=== PATIENT | female | born 1995 | race Caucasian/White ===

== ENCOUNTER 2023-01-24 11:09 | Emergency (ER) | payer BC, SELFPAY ==
--- NOTE | 2023-01-24 11:13 | ED.URI ---
HPI - URI/Sore Throat General Chief Complaint: Upper Respiratory Infection Stated Complaint: Sinus/Cough Time Seen by Provider: 01/24/23 11:12 Source: patient Mode of arrival: ambulatory Limitations: no limitations History of Present Illness HPI Narrative: Kiera is a 27-year-old female patient presenting to clinic today with complaints of sinus congestion and cough x2 weeks. She reports she has been taking amoxicillin for a tooth infection however this does not seem to be improving a her symptoms. She reports she is having thick nasal secretions that are green and is having a productive cough. Does have a history of asthma and also has been having to take her albuterol inhaler for her symptoms. MD elicited complaint: cough and nasal congestion Related Data Home Medications Medication Instructions Recorded Confirmed cetirizine 10 mg capsule (Zyrtec) 10 mg PO DAILY PRN Allergy Symptoms 11/25/21 01/24/23 chlorhexidine gluconate 0.12 % 0.5 ml PO DAILY 01/24/23 01/24/23 mouthwash montelukast 10 mg tablet 10 mg PO HS 01/24/23 01/24/23 pantoprazole 40 mg tablet,delayed 40 mg PO DAILY 01/24/23 01/24/23 release Allergies Allergy/AdvReac Type Severity Reaction Status Date / Time No Known Allergies Allergy Verified 01/24/23 11:13 Review of Systems Review of Systems: Pertinent positives per HPI. Patient denies any fever, chills, rash, headache, visual changes, dizziness, shortness of breath, chest pain, palpitations, nausea, vomiting, diarrhea, constipation, abdominal pain, or any urinary issues. [facility] Surgical History Surgical History History of tonsillectomy Family History Family History Mother Heart disease Father Melanoma Social History Social History Smoking status: Never smoker Alcohol intake: never Comments At the time of my signature, I reviewed and agree with the nursing past medical, surgical, social, and family history. There is no relevant family history pertinent to the patient complaint. Exam Narrative: General: Well-developed, well nourished, in no apparent distress Head: Normocephalic, atraumatic Eyes: Pupils equally round and reactive to light bilaterally, EOM intact, sclera and conjunctive clear, no discharge, lids normal Ears: TMs intact and clear, ear canals clear, no drainage, grossly hearing normal. Nose: Nares patent, green nasal discharge, severe inflammation, maxillary and frontal sinus tenderness. Mouth: Oral pharynx without lesions or masses, good dentition, MMM. Tonsils surgically absent, postnasal drip Neck: Supple, trachea midline, no enlargement of anterior or posterior cervical nodes, no thyroid masses or goiter palpable. Cardio: Regular rate and rhythm, s1 and s2 normal, no murmur appreciated. Resp: Clear to auscultation bilaterally, no rhonchi, rales, wheezing or rubs Course Course Emergency Course: Portions of this record may have been created with voice recognition software. Level of Care: Express Care Visit Vital Signs Vital signs: Vital signs reviewed MDM - URI/Sore Throat MDM Narrative Medical decision making narrative: At the time of visit patient is resting comfortably on exam table. I suspect patient has acute bacterial rhinosinusitis. Prescription for Augmentin was sent to the pharmacy as well as prednisone and a refill for her albuterol inhaler as she is running low. Supportive measures were discussed with the patient she voiced understanding discharge instructions agrees to treatment plan. Differential Diagnosis Differential diagnosis: Likely upper respiratory infection, sinusitis, viral infection, bronchitis, influenza, pharyngitis and other (COVID) Discharge Plan Discharge Clinical Impression: Acute bacterial sinusitis Patient Disposition: Home, Self
[2023-01-24 11:21] VITALS: BP 124/88; PULSE 91; RESP 16; TEMP 36.6; O2SAT 100
== END 2023-01-24 11:28 | disposition home or self-care (01) ==
PROVIDERS: Emergency Provider Nurse Practitioner Family; PCP Nurse Practitioner Family
DX: J01.90 Acute sinusitis, unspecified (principal); J45.909 Unspecified asthma, uncomplicated
CPT/HCPCS: 99213; G0463

== ENCOUNTER 2023-04-04 19:14 | Emergency (ER) | payer BC, SELFPAY ==
[2023-04-04 19:20] VITALS: BP 132/81; PULSE 124; RESP 16; TEMP 37.1; O2SAT 100
--- NOTE | 2023-04-04 19:21 | ED.GENADULT ---
HPI - General Adult General Chief complaint: Skin/Abscess/Foreign Body Stated complaint: Bump Under Rt Arm Time Seen by Provider: 04/04/23 19:21 Source: patient Mode of arrival: ambulatory Limitations: no limitations History of Present Illness HPI narrative: 27-year-old female patient presents to the [facility] with complaints of swelling and a bump to right axilla for the past couple days. Patient states she has had small ingrown hair area since axilla before the past but today this time is been worse. Denies fevers, body aches or chills. Patient states she was at the [facility] today. Related Data Home Medications Medication Instructions Recorded Confirmed cetirizine 10 mg capsule (Zyrtec) 10 mg PO DAILY PRN Allergy Symptoms 11/25/21 04/04/23 montelukast 10 mg tablet 10 mg PO HS 01/24/23 04/04/23 pantoprazole 40 mg tablet,delayed 40 mg PO DAILY 01/24/23 04/04/23 release Allergies Allergy/AdvReac Type Severity Reaction Status Date / Time No Known Allergies Allergy Verified 04/04/23 19:14 Review of Systems Review of Systems: CONSTITUTIONAL: Denies fever, chills, or sweats. EYES: Denies visual changes, redness, or discharge. ENT: Denies rhinorrhea, congestion, sore throat, or otalgia. CARDIOVASCULAR: Denies chest pain, palpitations, or edema. RESPIRATORY: Denies cough or dyspnea. GASTROINTESTINAL: Denies abdominal pain, nausea, vomiting, or diarrhea. GENITOURINARY: Denies dysuria or hematuria. SKIN: Denies rash or itching. Positive swelling to right axilla times 2-3 days MUSCULOSKELETAL: Denies back pain, joint pain, or myalgia. NEUROLOGIC: Denies headache, numbness, or weakness. PSYCHIATRIC: Denies anxiety or depression. [facility] Past Medical History Medical History (Updated 04/04/23 @ 19:27 by LANNY Dunn) Seasonal allergies Surgical History Surgical History History of tonsillectomy Family History Family History Mother Heart disease Father Melanoma Social History Social History (Reviewed 04/04/23 @ 19:21 by OTIS Dunn Smoking status: Never smoker Alcohol intake: never Comments At the time of my signature I agree with nursing past medical history, surgical, social, and family history. There is no relevant family history pertinent to the presenting complaint. Exam Narrative: GENERAL: Well-appearing, well-nourished, and in no acute distress. HEAD: Normocephalic, atraumatic. EYES: PERRLA and EOMI. ENT: Nares clear, no rhinorrhea or epistaxis. Mucous membranes moist. NECK: Supple. No lymphadenopathy CHEST: Clear to auscultation. No respiratory distress. HEART: Regular rate and rhythm. No murmur heard. Normal peripheral pulses. ABDOMEN: Soft, nontender, nondistended, normal active bowel sounds. EXTREMITIES: Normal range of motion. No edema. SKIN: Warm, dry, no rash. patient has a small 1 cm x 1 cm bump area with no warmth present and very mild erythema. The area is tender to the touch. Patient does have a larger swelling area measuring approximately 15 cm x 15 cm but it is soft to the touch and slightly tender. No site of induration NEURO: No focal deficits. Alert and oriented x3. Course Course Level of Care: Express Care Visit Vital Signs Vital signs: Vital Signs Temperature 37.1 C 04/04/23 19:20 Pulse Rate 124 H 04/04/23 19:20 Respiratory Rate 16 04/04/23 19:20 Blood Pressure 132/81 04/04/23 19:20 Pulse Oximetry 100 04/04/23 19:20 Oxygen Delivery Room Air 04/04/23 19:20 Temperature 37.1 C 04/04/23 19:20 Pulse Rate 124 H 04/04/23 19:20 Respiratory Rate 16 04/04/23 19:20 Blood Pressure 132/81 04/04/23 19:20 Pulse Oximetry 100 04/04/23 19:20 Oxygen Delivery Room Air 04/04/23 19:20 vital signs reviewed The patient has been informed that they may have pre-hypertension or Hypertension based o
== END 2023-04-04 19:29 | disposition home or self-care (01) ==
PROVIDERS: Emergency Provider Nurse Practitioner Family; PCP Nurse Practitioner Family
DX: L02.411 Cutaneous abscess of right axilla (principal)
CPT/HCPCS: 99213; G0463

== ENCOUNTER 2025-05-03 14:18 | Outpatient (CLI) | payer BC, SELFPAY ==
--- NOTE | ~2025-05-03 | US_ITS ---
EXAMINATION: US OB /maternal detail DATE: 05/03/2025 15:08 INDICATION: survey TECHNIQUE: Multiple obstetric sonographic images performed. FINDINGS: No prior studies for comparison. There is a single living fetus in vertex presentation. The placenta is anterior without placenta pre via. Amniotic fluid volume is subjectively normal. PARVIN measures 16.8 cm. cardiac activity and movement is noted with a heart rate of 170 beats per minute. The following anatomy was identified as normal: 4 chamber heart 3 vessel cord cord insertion kidneys urinary bladder stomach spine diaphragm ventricles cisterna magna cerebellum The following biometric data were obtained: BPD: 49mm corresponds to gestational age 20 weeks 5 days. Head circumference: 184 mm corresponds to gestational age 20 weeks 5 days. Abdominal circumference: 165 mm corresponds to gestational age 21 weeks 4 days. Femur length: 34 mm corresponds to gestational age 20 weeks 5 days. Head circumference to abdominal circumference ratio: 1.11 (normal range for expected gestational age is 1.06-1.25). Estimated weight: 399 grams +/- 60 grams using Hadlock method, 74%. IMPRESSION: 1: Single living intrauterine with an estimated gestational age of 21weeks 0days by initial ultrasound measurements, with an EDC of 09/13/2025 in vertex presentation. 2. Normal survey. Reviewed, dictated and finalized at location A. IMPRESSION: 1: Single living intrauterine with an estimated gestational age of 21 weeks 0days by initial ultrasound measurements, with an EDC of 09/13/2025 in ve rtex presentation. 2. Normal survey.
== END 2025-05-03 14:19 | disposition home or self-care (01) ==
PROVIDERS: PCP Obstetrics & Gynecology; Visit Provider Obstetrics & Gynecology
DX: Z34.92 Encounter for supervision of normal pregnancy, unspecified, second trimester (principal); Z3A.21 21 weeks gestation of pregnancy
CPT/HCPCS: 76805

== ENCOUNTER 2025-06-28 06:37 | Outpatient (RCR) | payer BC, SELFPAY ==
--- OUTSIDE RECORDS SUMMARY | 2025-06-26 14:59 | XMS_ITS | Encounter Summary ---
Author Organization [facility] Address [address] [place] [id number] Care Team Providers Care Lag Screwer Name Role Phone Julisa Pierre [facility] Primary Care Provider + Christiana Woodward [facility] Primary Care Provider + Encounter Details Date Type Department Care Team (Late st Contact Info) Description 04/28/2023 [employer] Message Enc [facility] Medical Group Family & Internal Medicine [address] [phone] Julisa Pierre [address] [phone] Medication Questions Social History Tobacco Use Types Packs/Day Years Used Date Smoking Tobacco: Never Smokeless Tobacco: Never Comments:non smoker Alcohol Use Standard Drinks/Week Comments Yes 0 (1 standard drink = 0.6 oz pur e alcohol) social AUDIT-C Answer Date Recorded Frequency of Alcohol Consumption Monthly or less 09/28/2019 Average Number of Drinks Not on file 019 Frequency of Binge Drinking Not on file 09/03 PHQ-2 Answer Date Recorded PHQ-2 Score - If the patient scores above 3, please move on to questions 3-9 0 06/17/2022 Comments No Sex and Gender Information Value Date Recorded Sex Assigned at Female 10/21/2018 10:54 PM ABATTOIR SUPERVISOR Legal Sex Female 6:02 PM CDT Gender Identity Female 10/21/2018 10:54 PM ABATTOIR SUPERVISOR Sexual Orientation Straight 10/21/2018 1: 52 PM ABATTOIR SUPERVISOR Occupation Industry Job Start Date Job End Date Not on file Not on file Not on file Not on file documented as of this encounter Plan of Treatment Not on file documented as of this encounter Visit Diagnoses Not on filedocumented in this encounter Care Teams Lag Screwer Relationship Specialty Start Date End Date Julisa Pierre [facility] PCP - General Nurse Practitioner Family 08/15/2106/03 Christiana Woodward, [facility] [address], [address] [place] [address] PCP - General Nurse Practitioner Family 06/04/23 documented as of this encounter
--- OUTSIDE RECORDS SUMMARY | 2025-06-26 14:59 | XMS_ITS | Encounter Summary ---
Author Organization [facility] Address [address] [place] [address] Care Team Providers Care Golf Club Manager Name Role Phone Julisa Pierre [facility] Primary Care Provider + Christiana Woodward [facility] Primary Care Provider + Encounter Details Date Type Department Care Team (Late st Contact Info) Description 08/22/2022 Synapse Message Enc [facility] Medical Group Family & Internal Medicine [address] [phone] Julisa Pierre [address] [phone] Medication Questions Social History Tobacco Use Types [...] Sex Assigned at Female 10/21/2018 10:54 PM EXECUTIVE HOUSEKEEPER Legal Sex Female 6:02 PM CDT Gender Identity Female 10/21/2018 10:54 PM EXECUTIVE HOUSEKEEPER Sexual Orientation Straight 10/21/2018 1: 52 PM EXECUTIVE HOUSEKEEPER Occupation Industry Job Start Date Job End Date Not on file Not on file Not on file Not on file documented as of this encounter Progress Notes * AYLEEN Ferris - 08/25/2022 11:50 PM CDT Okay to order. * Ganesh Cheung RN - 08/25/2022 10:58 AM CDT Ok to order? documented in this encounter Plan of Treatment Not on file documented as of this encounter Visit Diagnoses Not on filedocumented in this encounter Care Teams Golf Club Manager Relationship Specialty Start Date End Date Julisa Pierre FNP-BC PCP - General Nurse Practitioner Family 08/15/2106/03 Christiana Woodward [facility] [address], [address] [place] [address] PCP - General Nurse Practitioner Family 06/04/23 documented as of this encounter
--- OUTSIDE RECORDS SUMMARY | 2025-06-26 14:59 | XMS_ITS | Clinical Summary ---
Author Organization [facility] Address [address] [place] [address] Phone Care Team Providers Care Food Order Delivery Runner Name Role Phone [facility], External Provider Primary Care Provider U navailable Allergies No known active allergies Medications No known medications Active Problems Problem Noted Date Diagnosed Date Low BP 06/01/2017 Heart palpitations 04/21/2017 Preoperative cardiovascular examination 04/21/20 17 Family history of premature CAD 04/21/2017 Sinus tachycardia 04/21/2017 Family History Relation Name Status Comments Father Mother Alive Social History Tobacco Use Types Packs/Day Years Used Date Smoking Tobacco: Never Smokeless Tobacco: Never Alcohol Use Standard Drinks/Week Comments No 0 (1 standard drink = 0.6 oz pur e alcohol) Comments Unknown Sex and Gender Information Value Date Recorded Sex Assigned at Not on file Legal Sex Female 11:22 AM CDT Gender Identity Not on file Sexual Orientation Not on file Last Filed Vital Signs Vital Sign Reading Time Taken Comments Blood Pressure 90/54 05/28/2017 1:42 PM CDT Pulse 100 05/28/2017 1:42 PM CDT Temperature - - Respiratory Rate - - Oxygen Saturation 98% 05/28/2017 1:42 PM CDT Inhaled Oxygen Concentration - - Weight 75.3 kg (166 lb) 05/28/2017 1:42 PM CDT Height 177.8 cm (5' 10) 05/28/2017 1:42 PM CDT Body Mass Index 23.82 05/28/2017 1:42 PM CDT Plan of Treatment Health Maintenance Due Date Last Done Comments DTAP/TDAP/TD VACCINES (1 - Tdap) 2016 HEPATITIS B VACCINES (1 of 3 - 19+ 3-dose series) 09/02 CERVICAL CANCER SCREENING 2018 HPV/Cotest (21-29) 2018 PAP SMEAR 2018 HPV VACCINES (1 - 3-dose SCDM series) 2024 INFLUENZA VACCINE (#1) 2025 Insurance Care Teams Food Order Delivery Runner Relationship Specialty Start Date End Date [facility], External Provider [address] [place] [address] PCP - General 04/02/17
--- OUTSIDE RECORDS SUMMARY | 2025-06-26 14:59 | XMS_ITS | Encounter Summary ---
Author Organization [facility] Address [address] [place] [address] Care Team Providers Care Housing Grant Analyst Name Role Phone Julisa Pierre [facility] Primary Care Provider + Christiana Woodward [facility] Primary Care Provider + Encounter Details Date Type Department Care Team (Late st Contact Info) Description 02/05/2023 Enclarity Message Enc [facility] Medical Group Family & Internal Medicine [address] [phone] Julisa Pierre [address] [phone] Medication Questions Social History Tobacco Use Types [...] Sex Assigned at Female 10/21/2018 10:54 PM BOILER TUBE BLOWER Legal Sex Female 6:02 PM CDT Gender Identity Female 10/21/2018 10:54 PM BOILER TUBE BLOWER Sexual Orientation Straight 10/21/2018 1: 52 PM BOILER TUBE BLOWER Occupation Industry Job Start Date Job End Date Not on file Not on file Not on file Not on file documented as of this encounter Progress Notes * AYLEEN Ferris - 02/15/2023 7:00 PM CDT Please see other MyChart message. * Clarita Preston MA - 02/06/2023 7:22 AM CDT Please advise? documented in this encounter Plan of Treatment Not on file documented as of this encounter Visit Diagnoses Not on filedocumented in this encounter Care Teams Housing Grant Analyst Relationship Specialty Start Date End Date Julisa Pierre FNP-BC PCP - General Nurse Practitioner Family 08/15/2106/03 Christiana Woodward [facility] [address], [address] [place] [id number] PCP - General Nurse Practitioner Family 06/04/23 documented as of this encounter
--- OUTSIDE RECORDS SUMMARY | 2025-06-26 14:59 | XMS_ITS | Clinical Summary ---
Author Organization [facility] Address [address] [place] [address] Care Team Providers Care First Aid Officer Name Role Phone Christiana Woodward [facility] Primary Care Provider + Allergies No known active allergies Medications loratadine (CLARITIN) 10 MG tablet Take 1 tablet (10 mg total) by mouth daily. Active albuterol sulfate HFA (PROAIR HFA) 108 (90 Base) MCG/ACT inhalerIndicatio ns:Allergic rhinitis, unspecified seasonality, unspecified trigger Inhale 1-2 puffs into the lungs every 6 (six) hours as needed for Wheezing or Shortness of breath. 18 g 1 4 Active FLUoxetine (PROZAC) 10 MG tabletIndication s:PMDD (premenstrual dysphoric disorder) Take 1 tablet (10 mg total) by mouth daily. 90 tablet 1 5 Active Active Problems Problem Noted Date Diagnosed Date Cervical herniated disc 05/22/2020 Allergic rhinitis 04/16/2018 PMS (premenstrual syndrome) 04/16/2018 Family history of premature CAD 04/21/2017 Heart palpitations 04/21/2017 Esophagitis, reflux 11/17/2016 Seasonal allergies 10/05/2015 Scoliosis 06/14/2013 Unequal leg length (acquired) 04/13/2013 Overview (09/22/2018): Description: need leg length study Comments Yes Resolved Problems Problem Noted Date Diagnosed Date Resolved Date Neck pain 08/23/2018 09/24/2018 Shoulder pain, left 04/16/2018 09/24/20 Low BP 06/01/2017 08/22/2021 Wears glasses 05/22/2017 07/13/2020 Preoperative cardiovascular examination 04/21/2017 09/24/2018 Sinus tachycardia 11/17/2016 03/18/2019 Melasma 04/02/2016 08/23/2024 Motion sickness 12/28/2013 08/25/2021 Acute sinusitis, recurrence not specified, unspecified location 09/19/2013 09/24/2018 Encounter for preventive health examination 06/21/2012 09/24/2018 Encounters Date Type Department Care Team Description 04/03/2025 Telephone [facility] Family & Internal Medicine [address] [phone] Christiana Woodward, CLAMSHELL ENGINEER-BC Medication from Last 3 Months Immunizations Immunization Administration Dates Next Due Dtap (Generic) 05/23/2003, 9,03/30/1998,01/29,1997 Dtap/Hep B/Ipv 1997 Fluzone 6 Months+ Quad (0.5 mL Prefilled Syringe) 08/17/2020,08/11/2019 HPV 08/10/2014,06/21/2012,07/04/2009 Hepatitis A (Generic) 07/04/2009 Hepatitis A Vaccine - 2 Dose 06/13/2015 Hepatitis B (Generic: Adult) 03/30/1998,10/19/19 97,1997 Hib (Generic) 01/22/1999 Hib Vaccine, Prp-Omp 03/24/1999,03/30/19 98,01/29/1998,11/23 Influenza (FluMist) 08/16/2008 Influenza (Generic) 09/19/2013,07/04/2009,2007 Influenza Adult (Generic) 08/23/2018,12/2017,08/10/2014,09/19 MMR (Generic) 05/23/2003,10/03/1998 Meningococcal Vac A,C,Y,W-135 Sc 06/13/2015,12/2008 PFIZER COVID-19 (ORIGINAL FO RMULATION, PURPLE CAP) mRNA, LNP-S, PF, 30 MCG/0.3 ML DOSE 10/17/2021 Polio Ipv (Generic) 05/23/2003, 8,01/19/1998,11/23 Polio Opv (Generic) 1997 Tdap (Boostrix) 12/24/2022 Tdap (Generic) 08/16/2008 Varicella Vaccine 08/16/2008,10/03/1998 Family History Medical History Relation Comments GERD Brother Diabetes Father Skin cancer Father Heart Disease Maternal Grandfather Heart Disease Maternal Grandmother Diabetes Mother Fibromyalgia Mother Heart Disease Mother multiple cardiac surgeries Hiatal hernia Mother Rheumatoid Arthritis Mother Stroke Mother Relation Status Comments Brother Alive Father Maternal Grandfather Maternal Grandmother Mother Alive Social History Tobacco Use Types Packs/Day Years Used Date Smoking Tobacco: Never Smokeless Tobacco: Never Tobacco Cessation:Counseling Given: No Comments:non smoker Alcohol Use Standard Drinks/Week Comments Yes 6.7 (1 standard drink = 0.6 oz p ure alcohol) social; weekends AUDIT-C Answer Date Recorded Frequency of Alcohol Consumption Monthly or less 09/28/2019 Average Number of Drinks Not on file 019 Frequency of Binge Drinking Not on file 09/03 PHQ-2 Answer Date Recorded Patient Health Questionnaire-2 Score 2 01/30/2025 Comments Yes Sex and Gender Information Value Date Recorded Sex Assigned at Female 10/21/2018 10:54 PM MEDICAL APPOINTMENT CLERK Legal Sex Female 6:02 PM CDT Gender Identity Female 10/21/2018 10:54 PM MEDICAL APPOINTMENT CLERK Sexual Orientation Straight 10/21/2018 1: 52 PM MEDICAL APPOINTMENT CLERK Occupation Industry Job Start Date Job End Date Not on file Not on file Not on file Not on file Last Filed Vital Signs Vital Sign Reading Time Taken Comments Blood Pressure 123/81 01/30/2025 8:54 AM CDT Pulse 101 01/30/2025 8:54 AM CDT Temperature 36.9 C (98.5 F) 01/30/2025 8:54 AM CDT Respiratory Rate 16 01/30/2025 8:54 AM CDT Oxygen Saturation 100% 01/30/2025 8:54 AM CDT Inhaled Oxygen Concentration - - Weight 88.5 kg (195 lb) 01/30/2025 8:54 AM CDT Height 177.8 cm (5' 10) 01/30/2025 8:54 AM CDT Body Mass Index 27.98 01/30/2025 8:54 AM CDT Plan of Treatment Health Maintenance Due Date Last Done Comments Cervical Cancer Screening Pap Smear (Age 21 to 29) Every 3 Years 1997 Annual Physical 06/17/2024 06/17/2023, 06/17/2022 COVID-19 Vaccine ( season) 2025 10/17/2021 Postponed from 07/03/2024 (Patient Refused) Cervical Cancer Screening 10/14/2027 Po stponed from 1997 (Going to Outside Clinic) DTaP, Tdap and Td Vaccines (8 - Td or Tdap) 12/24/2032 12/24/2022, 08/16/2008, 05/23/2003, Additional history exists Hepatitis C 10/18/2054 Postponed from 2015 (Patient Refused) RSV Immunization or 60+ Years (1 - 1-dose 75+ series) 2072 Hepatitis B Vaccines Completed 03/30/1998, 1997, 1997, Additional history exists HPV Vaccines Completed 08/10/2014, 06/03, 07/04/2009 Meningococcal Vaccine Aged Out 06/13/2015, 009 No longer eligible based on patient's age to complete this topic PHQ-2 (Physician Verner) Completed 01/30/2025 Meningococcal B Vaccine Aged Out No l onger eligible based on patient's age to complete this topic Pneumococcal Vaccine: Pediatrics (0 to 5 Years) and At-Risk Patients (6 to 49 Years) Aged Out No longer eligible based on patient's age to complete this topic RSV Immunizations Under 20 Months Aged Out No longer eligible based on patient's age to complete this topic Insurance [facility] Care Teams First Aid Officer Relationship Specialty Start Date End Date Christiana Woodward, [facility]- [address], [address] [place] [phone] PCP - General Nurse Practitioner Family 06/04/23
--- OUTSIDE RECORDS SUMMARY | 2025-06-26 14:59 | XMS_ITS | Encounter Summary ---
Author Organization [facility] Address [address] [place] [address] Care Team Providers Care Senior Gis Analyst Name Role Phone Alana Renee NP Primary Care Provider Unav ailable Julisa Pierre [facility] Primary Care Provider + Christiana Woodward [facility] Primary Care Provider + Encounter Details Date Type Department Care Team (Late st Contact Info) Description 09/17/2020 [employer] Message Enc [facility] Medical Group Family & Internal Medicine [address] [phone] Alana Renee NP RE: Follow Up/Update Social History Tobacco Use Types Packs/Day Years Used Date Smoking Tobacco: Never Smokeless Tobacco: Never Alcohol Use Standard Drinks/Week Comments Yes 0 (1 standard drink = 0.6 oz pur e alcohol) social AUDIT-C Answer Date Recorded Frequency of Alcohol Consumption Monthly or less 09/28/2019 Average Number of Drinks Not on file 019 Frequency of Binge Drinking Not on file 09/03 PHQ-2 Answer Date Recorded PHQ-2 Score 0 09/28/2019 Comments No Sex and Gender Information Value Date Recorded Sex Assigned at Female 10/21/2018 10:54 PM CHRISTMAS TREE GROWER Legal Sex Female 6:02 PM CDT Gender Identity Female 10/21/2018 10:54 PM CHRISTMAS TREE GROWER Sexual Orientation Straight 10/21/2018 1: 52 PM CHRISTMAS TREE GROWER Occupation Industry Job Start Date Job End Date Not on file Not on file Not on file Not on file documented as of this encounter Progress Notes * Isa Olson MA - 09/17/2020 4:20 PM CST Please advise. STMAS TREE GROWER documented in this encounter Plan of Treatment Not on file documented as of this encounter Visit Diagnoses Not on filedocumented in this encounter Additional Health Concerns Infection Onset Date Last Indicated Resolved Time COVID-19 Confirmed 09/06/2020 09/06/2020 12:34 AM CHRISTMAS TREE GROWER COVID-19 Rule Out 03/22/2021 03/22/2021 03/22/2021 11:36 AM CDT COVID-19 Rule Out 08/28/2021 08/28/2021 08/29/2021 7:37 PM CDT documented as of this encounter Care Teams Senior Gis Analyst Relationship Specialty Start Date End Date Alana Renee NP PCP - General NURSE PRACTITIONER 09/22/18 08/14/21 Julisa Pierre, [facility]- PCP - General Nurse Practitioner Family 08/15/2106/03 Christiana Woodward, [facility]- [address], [address] [place] [address] PCP - General Nurse Practitioner Family 06/04/23 documented as of this encounter
--- OUTSIDE RECORDS SUMMARY | 2025-06-26 14:59 | XMS_ITS | Encounter Summary ---
Author Organization [facility] Address [address] [place] [address] Care Team Providers Care Die Reamer Name Role Phone Alana Renee NP Primary Care Provider Unav ailable Julisa Pierre [facility] Primary Care Provider + Christiana Woodward [facility] Primary Care Provider + Encounter Details Date Type Department Care Team (Late st Contact Info) Description 06/12/2020 [employer] Message Enc [facility] Medical Group Family & Internal Medicine [address] [phone] Alana Renee NP RE: Follow [...] Sex Assigned at Female 10/21/2018 10:54 PM EMBROIDERER Legal Sex Female 6:02 PM CDT Gender Identity Female 10/21/2018 10:54 PM EMBROIDERER Sexual Orientation Straight 10/21/2018 1: 52 PM EMBROIDERER Occupation Industry Job Start Date Job End Date Not on file Not on file Not on file Not on file COVID-19 Exposure Response Date Recorded In the last month, have you been in contact with someone who was confirmed or suspected to have Coronavirus / COVID-19? No / Unsure 06/14/2020 1:38 PM CDT documented as of this encounter Progress Notes * Andie Parra RN - 06/14/2020 9:00 AM CDT Called and left for patient to return call to schedule appt. * Alana Renee NP - 06/12/2020 6:20 PM CDT Poor girl! Yes, can she come in for appt please so we can check her urine? Thanks lenny documented in this encounter Plan of Treatment Not on file documented as of this encounter Visit Diagnoses Not on filedocumented in this encounter Additional Health Concerns Infection Onset Date Last Indicated Resolved Time COVID-19 Rule Out 09/06/2020 09/06/2020 09/09/2020 3:01 PM EMBROIDERER COVID-19 Confirmed 09/06/2020 09/06/2020 12:34 AM EMBROIDERER COVID-19 Rule Out 03/22/2021 03/22/2021 03/22/2021 11:36 AM CDT COVID-19 Rule Out 08/28/2021 08/28/2021 08/29/2021 7:37 PM CDT documented as of this encounter Care Teams Die Reamer Relationship Specialty Start Date End Date Alana Renee NP PCP - General NURSE PRACTITIONER 09/22/18 08/14/21 Julisa Pierre FNP- PCP - General Nurse Practitioner Family 08/15/2106/03 Christiana Woodward, [facility]- [address], [address] [place] [address] PCP - General Nurse Practitioner Family 06/04/23 documented as of this encounter
--- OUTSIDE RECORDS SUMMARY | 2025-06-26 14:59 | XMS_ITS | Encounter Summary ---
Author Organization [facility] Address [address] [place] [address] Care Team Providers Care Parts Clerk Name Role Phone Alana Renee NP Primary Care Provider Unav ailable Julisa Pierre [facility] Primary Care Provider + Christiana Woodward [facility] Primary Care Provider + Encounter Details Date Type Department Care Team (Late st Contact Info) Description 06/11/2020 [employer] Message Enc [facility] Medical Group Family & Internal Medicine [address] [phone] Alana Renee, HONING MACHINE TRY OUT SETTER RE: Question Social History Tobacco Use Types Packs/Day Years [...] Sex Assigned at Female 10/21/2018 10:54 PM FILM SOUND COORDINATOR Legal Sex Female 6:02 PM CDT Gender Identity Female 10/21/2018 10:54 PM FILM SOUND COORDINATOR Sexual Orientation Straight 10/21/2018 1: 52 PM FILM SOUND COORDINATOR Occupation Industry Job Start Date Job End Date Not on file Not on file Not on file Not on file COVID-19 Exposure Response Date Recorded In the last month, have you been in contact with someone who was confirmed or suspected to have Coronavirus / COVID-19? No / Unsure 06/14/2020 1:38 PM CDT documented as of this encounter Plan of Treatment Not on file documented as of this encounter Visit Diagnoses Not on filedocumented in this encounter Additional Health Concerns Infection Onset Date Last Indicated Resolved Time COVID-19 Rule Out 09/06/2020 09/06/2020 09/09/2020 3:01 PM FILM SOUND COORDINATOR COVID-19 Confirmed 09/06/2020 09/06/2020 12:34 AM FILM SOUND COORDINATOR COVID-19 Rule Out 03/22/2021 03/22/2021 03/22/2021 11:36 AM CDT COVID-19 Rule Out 08/28/2021 08/28/2021 08/29/2021 7:37 PM CDT documented as of this encounter Care Teams Parts Clerk Relationship Specialty Start Date End Date Alana Renee NP PCP - General NURSE PRACTITIONER 09/22/18 08/14/21 Julisa Pierre, [facility] PCP - General Nurse Practitioner Family 08/15/2106/03 Christiana Woodward, [facility]- [address], [address] [place] [address] PCP - General Nurse Practitioner Family 06/04/23 documented as of this encounter
--- OUTSIDE RECORDS SUMMARY | 2025-06-26 14:59 | XMS_ITS | Encounter Summary ---
Author Organization [facility] Address [address] [place] [address] Care Team Providers Care Lead Electrician Name Role Phone Julisa Pierre [facility] Primary Care Provider + Christiana Woodward [facility] Primary Care Provider + Encounter Details Date Type Department Care Team (Late st Contact Info) Description 01/30/[address] [employer] [address] [facility] Medical Group Family & Internal Medicine [address] [phone] Julisa Pierre [address] [phone] Medication Questions Social History Tobacco Use Types [...] Sex Assigned at Female 10/21/2018 10:54 PM AGRICULTURAL AGENT Legal Sex Female 6:02 PM CDT Gender Identity Female 10/21/2018 10:54 PM AGRICULTURAL AGENT Sexual Orientation Straight 10/21/2018 1: 52 PM AGRICULTURAL AGENT Occupation Industry Job Start Date Job End Date Not on file Not on file Not on file Not on file documented as of this encounter Progress Notes * AYLEEN Ferris - 02/02/2023 5:26 PM CDT Scop patches sent to her pharmacy. * Clarita Stanton RN - 02/02/2023 11:12 AM CDTFrom: Kiera Shea To: Julisa Pierre Sent: 01/30/2023 5:25 PM CDT Subject: Medication Questions Hello! I'm going on a cruise soon and I was wondering if Julisa could prescribe some of the scopalomine neck patches for motion sickness in case. [facility] please. Thanks! documented in this encounter Plan of Treatment Not on file documented as of this encounter Visit Diagnoses Diagnosis Motion sickness- Primary documented in this encounter Care Teams Lead Electrician Relationship Specialty Start Date End Date Julisa Pierre [facility] PCP - General Nurse Practitioner Family 08/15/2106/03 Christiana Woodward, [facility] [address], [address] [place] [address] PCP - General Nurse Practitioner Family 06/04/23 documented as of this encounter
--- OUTSIDE RECORDS SUMMARY | 2025-06-26 14:59 | XMS_ITS | Encounter Summary ---
Author Organization [facility] Address [address] [place] [address] Care Team Providers Care Chemicals Fermentation Operator Name Role Phone Julisa Pierre [facility] Primary Care Provider + Christiana Woodward [facility] Primary Care Provider + Encounter Details Date Type Department Care Team (Late st Contact Info) Description 12/26/2021 [employer] Message Enc [facility] Medical Group Family & Internal Medicine [address] [address] Julisa Pierre [address] [phone] Medication Questions Social History Tobacco Use Types [...] please move on to questions 3-9 0 10/03/2020 Comments No Sex and Gender Information Value Date Recorded Sex Assigned at Female 10/21/2018 10:54 PM JEWEL OLIVING MACHINE OPERATOR Legal Sex Female 6:02 PM CDT Gender Identity Female 10/21/2018 10:54 PM JEWEL OLIVING MACHINE OPERATOR Sexual Orientation Straight 10/21/2018 1: 52 PM JEWEL OLIVING MACHINE OPERATOR Occupation Industry Job Start Date Job End Date Not on file Not on file Not on file Not on file documented as of this encounter Progress Notes * AYLEEN Ferris - 12/26/2021 3:26 PM CST Follow up for annual physical 08/2022. Thank you for sending in the medication! L OLIVING MACHINE OPERATOR * Mary Esparza RN - 12/26/2021 11:39 AM CST Julisa, When would you like Dorina back for follow-up? L OLIVING MACHINE OPERATOR documented in this encounter Plan of Treatment Not on file documented as of this encounter Visit Diagnoses Diagnosis Gastroesophageal reflux disease with esophagitis without hemorrhage documented in this encounter Care Teams Chemicals Fermentation Operator Relationship Specialty Start Date End Date Julisa Pierre FNP-BC PCP - General Nurse Practitioner Family 08/15/2106/03 Christiana Woodward FNP-BC [address], [address] [place] [address] PCP - General Nurse Practitioner Family 06/04/23 documented as of this encounter
--- OUTSIDE RECORDS SUMMARY | 2025-06-26 14:59 | XMS_ITS | Encounter Summary ---
Author Organization [facility] Address [address] [place] [address] Care Team Providers Care Rand Cementer Name Role Phone Julisa Pierre [facility] Primary Care Provider + Christiana Woodward [facility] Primary Care Provider + Encounter Details Date Type Department Care Team (Late st Contact Info) Description 02/06/2023 [employer] Message Enc [facility] Medical Group Family & Internal Medicine [address] [phone] [facility] Provider Prescriptions Social History Tobacco Use Types Packs/Day Years [...] Sex Assigned at Female 10/21/2018 10:54 PM WATERFRONT DIRECTOR Legal Sex Female 6:02 PM CDT Gender Identity Female 10/21/2018 10:54 PM WATERFRONT DIRECTOR Sexual Orientation Straight 10/21/2018 1: 52 PM WATERFRONT DIRECTOR Occupation Industry Job Start Date Job End Date Not on file Not on file Not on file Not on file documented as of this encounter Plan of Treatment Not on file documented as of this encounter Visit Diagnoses Not on filedocumented in this encounter Care Teams Rand Cementer Relationship Specialty Start Date End Date Julisa Pierre, [facility] PCP - General Nurse Practitioner Family 08/15/2106/03 Christiana Woodward, [facility] [address], [address] [place] [address] PCP - General Nurse Practitioner Family 06/04/23 documented as of this encounter
--- OUTSIDE RECORDS SUMMARY | 2025-06-26 14:59 | XMS_ITS | Encounter Summary ---
Author Organization [facility] Address [address] [place] [address] Care Team Providers Care Night Cleaner Name Role Phone Alana Renee NP Primary Care Provider Unav ailable Julisa Pierre [facility] Primary Care Provider + Christiana Woodward [facility] Primary Care Provider + Encounter Details Date Type Department Care Team (Late st Contact Info) Description 01/02/2021 [employer] Message Enc [facility] Medical Group Family & Internal Medicine [address] [phone] Alana Renee NP RE: Medication Questions Social History Tobacco Use Types [...] Sex Assigned at Female 10/21/2018 10:54 PM PARLOR CHAPERONE Legal Sex Female 6:02 PM CDT Gender Identity Female 10/21/2018 10:54 PM PARLOR CHAPERONE Sexual Orientation Straight 10/21/2018 1: 52 PM PARLOR CHAPERONE Occupation Industry Job Start Date Job End Date Not on file Not on file Not on file Not on file COVID-19 Exposure Response Date Recorded In the last month, have you been in contact with someone who was confirmed or suspected to have Coronavirus / COVID-19? No / Unsure 12/30/2020 1:28 PM PARLOR CHAPERONE documented as of this encounter Progress Notes * Alana Renee NP - 01/02/2021 12:38 PM CST I am okay with sending this in, I just sent now. She does not take this regularly, only for back flare ups and she is getting in with neuro. Thank you In compliance with Act 266, I have researched the ePDMP and have found no concerning issues. The patient was educated on the importance of adhering to treatment regimen in terms of their controlled substance and they have been counseled on the proper disposal of unused medication. OR CHAPERONE * Andie Parra RN - 01/02/2021 11:32 AM CST Please advise if you would first like to see patient or when you would like to see her back. OR CHAPERONE documented in this encounter Plan of Treatment Not on file documented as of this encounter Visit Diagnoses Not on filedocumented in this encounter Additional Health Concerns Infection Onset Date Last Indicated Resolved Time COVID-19 Rule Out 03/22/2021 03/22/2021 03/22/2021 11:36 AM CDT COVID-19 Rule Out 08/28/2021 08/28/2021 08/29/2021 7:37 PM CDT documented as of this encounter Care Teams Night Cleaner Relationship Specialty Start Date End Date Alana Renee NP PCP - General NURSE PRACTITIONER 09/22/18 08/14/21 Julisa Pierre FNP-BC PCP - General Nurse Practitioner Family 08/15/2106/03 Christiana Woodward, [employer] [facility]- [address], [address] [place] [address] PCP - General Nurse Practitioner Family 06/04/23 documented as of this encounter
--- OUTSIDE RECORDS SUMMARY | 2025-06-26 14:59 | XMS_ITS | Encounter Summary ---
Author Organization [facility] Address [address] [place] [address] Care Team Providers Care Geophysical Prospecting Permit Agent Name Role Phone [place], Alana Mcdonald TELETRAY OPERATOR Primary Care Provider Unav ailable Julisa Pierre [facility] Primary Care Provider + Christiana Woodward [facility] Primary Care Provider + Encounter Details Date Type Department Care Team (Late st Contact Info) Description 11/18/2016 Abstract [facility] CONVERSION [address] [place] [address] , Generic Conversion, Social History Tobacco Use Types Packs/Day Years Used Date Smoking Tobacco: Never Assessed Comments Unknown Sex and Gender Information Value Date Recorded Sex Assigned at Female 10/21/2018 10:54 PM CREDIT PRODUCT ANALYST Legal Sex Female 6:02 PM CDT Gender Identity Female 10/21/2018 10:54 PM CREDIT PRODUCT ANALYST Sexual Orientation Straight 10/21/2018 1: 52 PM CREDIT PRODUCT ANALYST documented as of this encounter Plan of Treatment Not on file documented as of this encounter Visit Diagnoses Not on filedocumented in this encounter Additional Health Concerns Infection Onset Date Last Indicated Resolved Time COVID-19 Rule Out 09/06/2020 09/06/2020 09/09/2020 3:01 PM CREDIT PRODUCT ANALYST COVID-19 Confirmed 09/06/2020 09/06/2020 12:34 AM CREDIT PRODUCT ANALYST COVID-19 Rule Out 03/22/2021 03/22/2021 03/22/2021 11:36 AM CDT COVID-19 Rule Out 08/28/2021 08/28/2021 08/29/2021 7:37 PM CDT documented as of this encounter Care Teams Geophysical Prospecting Permit Agent Relationship Specialty Start Date End Date Alana Renee NP PCP - General NURSE PRACTITIONER 09/22/18 08/14/21 Julisa Pierre [facility] PCP - General Nurse Practitioner Family 08/15/2106/03 Christiana Woodward, [facility] [address] [facility], [address] [place] [address] PCP - General Nurse Practitioner Family 06/04/23 documented as of this encounter
--- OUTSIDE RECORDS SUMMARY | 2025-06-26 14:59 | XMS_ITS | Encounter Summary ---
Author Organization [facility] Address [address] [place] [address] Care Team Providers Care Organic Gardening Teacher Name Role Phone Christiana Woodward [facility] Primary Care Provider + Encounter Details Date Type Department Care Team (Late st Contact Info) Description 07/27/2024 [employer] Message Enc [facility] Medical Group Family & Internal Medicine [address] [phone] [place], [facility] Provider Need to reset appt Social History Tobacco Use Types Packs/Day Years [...] Answer Date Recorded Patient Health Questionnaire-2 Score 0 06/17/2023 Comments No Sex and Gender Information Value Date Recorded Sex Assigned at Female 10/21/2018 10:54 PM RADIOISOTOPE TECHNOLOGIST Legal Sex Female 6:02 PM CDT Gender Identity Female 10/21/2018 10:54 PM RADIOISOTOPE TECHNOLOGIST Sexual Orientation Straight 10/21/2018 1: 52 PM RADIOISOTOPE TECHNOLOGIST Occupation Industry Job Start Date Job End Date Not on file Not on file Not on file Not on file documented as of this encounter Plan of Treatment Not on file documented as of this encounter Visit Diagnoses Not on filedocumented in this encounter Additional Health Concerns Assessment Noted Time PHQ-9 Depression Total Score: 0 06/17/20 23 3:54 PM CDT documented as of this encounter Care Teams Organic Gardening Teacher Relationship Specialty Start Date End Date Christiana Woodward, [facility]- [address], [address] [place] [address] PCP - General Nurse Practitioner Family 06/04/23 documented as of this encounter
--- OUTSIDE RECORDS SUMMARY | 2025-06-26 14:59 | XMS_ITS | Encounter Summary ---
Author Organization [facility] Address [address] [place] [address] Care Team Providers Care Family Member Caretaker Name Role Phone Alana Renee NP Primary Care Provider Unav ailable Julisa Pierre [facility] Primary Care Provider + Christiana Woodward [facility] Primary Care Provider + Encounter Details Date Type Department Care Team (Late st Contact Info) Description 04/15/2021 [employer] Message Enc [facility] Medical Group Family & Internal Medicine [address] [phone] Alana Renee TUFTER RE: Question Social History Tobacco Use Types [...] Sex Assigned at Female 10/21/2018 10:54 PM FLOOR NURSE Legal Sex Female 6:02 PM CDT Gender Identity Female 10/21/2018 10:54 PM FLOOR NURSE Sexual Orientation Straight 10/21/2018 1: 52 PM FLOOR NURSE Occupation Industry Job Start Date Job End Date Not on file Not on file Not on file Not on file COVID-19 Exposure Response Date Recorded In the last month, have you been in contact with someone who was confirmed or suspected to have Coronavirus / COVID-19? No / Unsure 03/22/2021 6:45 AM CDT documented as of this encounter Plan of Treatment Not on file documented as of this encounter Visit Diagnoses Not on filedocumented in this encounter Additional Health Concerns Infection Onset Date Last Indicated Resolved Time COVID-19 Rule Out 08/28/2021 08/28/2021 08/29/2021 7:37 PM CDT documented as of this encounter Care Teams Family Member Caretaker Relationship Specialty Start Date End Date Alana Renee NP PCP - General NURSE PRACTITIONER 09/22/18 08/14/21 Julisa Pierre, [facility] PCP - General Nurse Practitioner Family 08/15/2106/03 Christiana Woodward, [facility]- [address], [address] [place] [address] PCP - General Nurse Practitioner Family 06/04/23 documented as of this encounter
--- OUTSIDE RECORDS SUMMARY | 2025-06-26 14:59 | XMS_ITS | Encounter Summary ---
Author Organization [facility] Address [address] [place] [address] Care Team Providers Care Career Technical Supervisor Name Role Phone Alana Renee NP Primary Care Provider Unav ailable Julisa Pierre [facility] Primary Care Provider + Christiana Woodward [facility] Primary Care Provider + Encounter Details Date Type Department Care Team (Late st Contact Info) Description 03/25/2021 [employer] Message Enc [facility] Medical Group Family & Internal Medicine [address] [phone] Alana Renee NP RE: Follow [...] Sex Assigned at Female 10/21/2018 10:54 PM DEBURRING TECHNICIAN Legal Sex Female 6:02 PM CDT Gender Identity Female 10/21/2018 10:54 PM DEBURRING TECHNICIAN Sexual Orientation Straight 10/21/2018 1: 52 PM DEBURRING TECHNICIAN Occupation Industry Job Start Date Job End Date Not on file Not on file Not on file Not on file COVID-19 Exposure Response Date Recorded In the last month, have you been in contact with someone who was confirmed or suspected to have Coronavirus / COVID-19? No / Unsure 03/22/2021 6:45 AM CDT documented as of this encounter Progress Notes * Andie Parra RN - 03/25/2021 10:56 AM CDT Please advise. documented in this encounter Plan of Treatment Not on file documented as of this encounter Visit Diagnoses Not on filedocumented in this encounter Additional Health Concerns Infection Onset Date Last Indicated Resolved Time COVID-19 Rule Out 08/28/2021 08/28/2021 08/29/2021 7:37 PM CDT documented as of this encounter Care Teams Career Technical Supervisor Relationship Specialty Start Date End Date Alana Renee NP PCP - General NURSE PRACTITIONER 09/22/18 08/14/21 Julisa Pierre [facility] PCP - General Nurse Practitioner Family 08/15/2106/03 Christiana Woodward, [facility]- [address] [facility], [address] [place] [address] PCP - General Nurse Practitioner Family 06/04/23 documented as of this encounter
[2025-06-26 16:53] LABS: Hematocrit 33.4 % (37.0-47.0); Hemoglobin 10.3 g/dL (12.0-15.0); Mean Corpuscular HGB Conc 30.8 g/dl (32-36); Mean Corpuscular Hemoglobin 24.3 pg (26-34); Mean Corpuscular Volume 79.0 fl (80-100); Platelet Count Result 232 k/mm3 (150-375); Red Blood Count 4.23 M/mm3 (4.2-5.4); White Blood Count 10.0 K/mm3 (4.5-10.0)
[2025-06-26 17:15] LABS: Glucose 1 Hour PP 50gm Dose 146 mg/dL
[2025-06-26 17:43] LABS: Syphilis IgG/IgM Antibody Non-Reactive (Nonreactive)
[2025-06-26 17:55] LABS: HIV 1/2 Ab P24 Ag Result Negative (Negative)
[2025-06-28] MEDS: RHO(D) IMMUNE GLOBULIN 300 MCG/2 ML SYRINGE IM (15:06)
== END 2025-06-28 09:00 | disposition home or self-care (01) ==
LOC: ANHLAB 06:37
PROVIDERS: Visit Provider Obstetrics & Gynecology
DX: Z11.4 Encounter for screening for human immunodeficiency virus [HIV] (principal); Z11.3 Encounter for screening for infections with a predominantly sexual mode of transmission; Z29.13 Encounter for prophylactic Rho(D) immune globulin; O36.0130 Maternal care for anti-D [Rh] antibodies, third trimester, not applicable or unspecified; Z3A.31 31 weeks gestation of pregnancy
CPT/HCPCS: 36415; 82947; 85027; 85461; 86593; 86703; 86850; 86900; 86901; 90384; 96372; G0432; J2790

== ENCOUNTER 2025-07-14 07:45 | Outpatient (CLI) | payer BC, SELFPAY ==
--- OUTSIDE RECORDS SUMMARY | 2025-07-14 07:48 | XMS_ITS | Encounter Summary ---
Author Organization [facility] Address [address] [place] [address] Care Team Providers Care Mold Filler Name Role Phone Julisa Pierre [facility] Primary Care Provider + Christiana Woodward [facility] Primary Care Provider + Encounter Details Date Type Department Care Team (Late st Contact Info) Description 02/06/2023 [employer] Message Enc [facility] Medical Group Family & Internal Medicine [address] [address] [facility] Provider Prescriptions Social History Tobacco Use Types [...] Sex Assigned at Female 10/21/2018 10:54 PM HANDBOOK WRITER Legal Sex Female 6:02 PM CDT Gender Identity Female 10/21/2018 10:54 PM HANDBOOK WRITER Sexual Orientation Straight 10/21/2018 1: 52 PM HANDBOOK WRITER Occupation Industry Job Start Date Job End Date Not on file Not on file Not on file Not on file documented as of this encounter Plan of Treatment Not on file documented as of this encounter Visit Diagnoses Not on filedocumented in this encounter Care Teams Mold Filler Relationship Specialty Start Date End Date Julisa Pierre [facility] PCP - General Nurse Practitioner Family 08/15/2106/03 Christiana Woodward [facility] PCP - General Nurse Practitioner Family 06/04/23 documented as of this encounter
--- OUTSIDE RECORDS SUMMARY | 2025-07-14 07:48 | XMS_ITS | Encounter Summary ---
Author Organization [facility] Address [address] [place] [address] Care Team Providers Care General Purchasing Agent Name Role Phone Julisa Pierre [facility] Primary Care Provider + Christiana Woodward [facility] Primary Care Provider + Encounter Details Date Type Department Care Team (Late st Contact Info) Description 02/05/2023 Aleth Message Enc [facility] Medical Group Family & Internal Medicine [address] [address] Julisa Pierre [address] [phone] Medication Questions Social History Tobacco Use Types [...] Sex Assigned at Female 10/21/2018 10:54 PM BRADDER Legal Sex Female 6:02 PM CDT Gender Identity Female 10/21/2018 10:54 PM BRADDER Sexual Orientation Straight 10/21/2018 1: 52 PM BRADDER Occupation Industry Job Start Date Job End [...] on filedocumented in this encounter Care Teams General Purchasing Agent Relationship Specialty Start Date End Date Julisa Pierre FNP-BC PCP - General Nurse Practitioner Family 08/15/2106/03 Christiana Woodward FNP-BC PCP - General Nurse Practitioner Family 06/04/23 documented as of this encounter
--- OUTSIDE RECORDS SUMMARY | 2025-07-14 07:48 | XMS_ITS | Encounter Summary ---
Author Organization [facility] Address [address] [place] [address] Care Team Providers Care Sales And Marketing Director Name Role Phone Julisa Pierre [facility] Primary Care Provider + Christiana Woodward [facility] Primary Care Provider + Encounter Details Date Type Department Care Team (Late st Contact Info) Description 04/28/2023 I[employer] Message Enc [facility] Medical Group Family & Internal Medicine [address] [address] [address]isa Pierre [address] [phone] Medication Questions Social History Tobacco Use Types [...] Sex Assigned at Female 10/21/2018 10:54 PM BRAIN WAVE TECHNICIAN Legal Sex Female 6:02 PM CDT Gender Identity Female 10/21/2018 10:54 PM BRAIN WAVE TECHNICIAN Sexual Orientation Straight 10/21/2018 1: 52 PM BRAIN WAVE TECHNICIAN Occupation Industry Job Start Date Job End Date Not on file Not on file Not on file Not on file documented as of this encounter Plan of Treatment Not on file documented as of this encounter Visit Diagnoses Not on filedocumented in this encounter Care Teams Sales And Marketing Director Relationship Specialty Start Date End Date Julisa Pierre [facility] PCP - General Nurse Practitioner Family 08/15/2106/03 Christiana Woodward [facility] PCP - General Nurse Practitioner Family 06/04/23 documented as of this encounter
--- OUTSIDE RECORDS SUMMARY | 2025-07-14 07:48 | XMS_ITS | Encounter Summary ---
Author Organization [facility] Address [address] [place] [address] Care Team Providers Care Ambulatory Care Coordinator Name Role Phone Alana Renee NP Primary Care Provider Unav ailable Julisa Pierre [facility] Primary Care Provider + Christiana Woodward [facility] Primary Care Provider + Encounter Details Date Type Department Care Team (Late st Contact Info) Description 09/17/2020 Dinglepharbt Message Enc [facility] Medical Group Family & Internal Medicine [address] [phone] Alana Renee NP RE: Follow [...] Sex Assigned at Female 10/21/2018 10:54 PM ASSEMBLER WIRE GROUP Legal Sex Female 6:02 PM CDT Gender Identity Female 10/21/2018 10:54 PM ASSEMBLER [employer]IRE GROUP Sexual Orientation Straight 10/21/2018 1: 52 PM ASSEMBLER [employer] Occupation Industry Job Start Date Job End Date Not on file Not on file Not on file Not on file documented as of this encounter Progress Notes * Isa Olson MA - 09/17/2020 4:20 PM CST Please advise. [employer] documented in this encounter Plan of Treatment Not on file documented as of this encounter Visit Diagnoses Not on filedocumented in this encounter Additional Health Concerns Infection Onset Date Last Indicated Resolved Time COVID-19 Confirmed 09/06/2020 09/06/2020 12:34 AM [employer] COVID-19 Rule Out 03/22/2021 03/22/2021 03/22/2021 11:36 AM CDT COVID-19 Rule Out 08/28/2021 08/28/2021 08/29/2021 7:37 PM CDT documented as of this encounter Care Teams Ambulatory Care Coordinator Relationship Specialty Start Date End Date Alana Renee NP PCP - General NURSE PRACTITIONER 09/22/18 08/14/[address] [facility]- PCP - General Nurse Practitioner Family 08/15/2106/03 Christiana Woodward, [facility]- PCP - General Nurse Practitioner Family 06/04/23 documented as of this encounter
--- OUTSIDE RECORDS SUMMARY | 2025-07-14 07:48 | XMS_ITS | Encounter Summary ---
Author Organization [facility] Address [address] [place] [address] Care Team Providers Care Early Childhood Lead Teacher Name Role Phone Alana Renee NP Primary Care Provider Unav ailable Julisa Pierre [facility] Primary Care Provider + Christiana Woodward [facility] Primary Care Provider + Encounter Details Date Type Department Care Team (Late st Contact Info) Description 01/02/2021 MyFeelBackt Message Enc [facility] Medical Group Family & Internal Medicine [address] [phone] Alana Renee NP RE: Medication [...] Sex Assigned at Female 10/21/2018 10:54 PM RISK CONTROL OFFICER Legal Sex Female 6:02 PM CDT Gender Identity Female 10/21/2018 10:54 PM RISK CONTROL OFFICER Sexual Orientation Straight 10/21/2018 1: 52 PM RISK CONTROL OFFICER Occupation Industry Job Start Date Job End Date Not on file Not on file Not on file Not on file COVID-19 Exposure Response Date Recorded In the last month, have you been in contact with someone who was confirmed or suspected to have Coronavirus / COVID-19? No / Unsure 12/30/2020 1:28 PM RISK CONTROL OFFICER documented as of this encounter Progress Notes [...] on the proper disposal of unused medication. CONTROL OFFICER * Andie Parra RN - 01/02/2021 11:32 AM CST Please advise if you would first like to see patient or when you would like to see her back. CONTROL OFFICER documented in this encounter Plan of Treatment Not on file documented as of this encounter Visit Diagnoses Not on filedocumented in this encounter Additional Health Concerns Infection Onset Date Last Indicated Resolved Time COVID-19 Rule Out 03/22/2021 03/22/2021 03/22/2021 11:36 AM CDT COVID-19 Rule Out 08/28/2021 08/28/2021 08/29/2021 7:37 PM CDT documented as of this encounter Care Teams Early Childhood Lead Teacher Relationship Specialty Start Date End Date Alana Renee NP PCP - General NURSE PRACTITIONER 09/22/18 08/14/21 Julisa Pierre FNP-BC PCP - General Nurse Practitioner Family 08/15/2106/03 Christiana Woodward, CIGAR MAKING MACHINE OPERATOR- PCP - General Nurse Practitioner Family 06/04/23 documented as of this encounter
--- OUTSIDE RECORDS SUMMARY | 2025-07-14 07:48 | XMS_ITS | Encounter Summary ---
Author Organization [facility] Address [address] [place] [address] Care Team Providers Care Service Superintendent Name Role Phone Alana Renee NP Primary Care Provider Unav ailable Julisa Pierre [facility] Primary Care Provider + Christiana Woodward [facility] Primary Care Provider + Encounter Details Date Type Department Care Team (Late st Contact Info) Description 06/12/2020 [employer] Message Enc [facility] Medical Group Family & Internal Medicine [address] [phone] Alana Renee NP RE: Follow [...] Sex Assigned at Female 10/21/2018 10:54 PM LASER BEAM TRIM OPERATOR Legal Sex Female 6:02 PM CDT Gender Identity Female 10/21/2018 10:54 PM LASER BEAM TRIM OPERATOR Sexual Orientation Straight 10/21/2018 1: 52 PM LASER BEAM TRIM OPERATOR Occupation Industry Job Start Date Job [...] 06/14/2020 9:00 AM CDT Called and left VM for patient to return call to schedule [...] Rule Out 09/06/2020 09/06/2020 09/09/2020 3:01 PM LASER BEAM TRIM OPERATOR COVID-19 Confirmed 09/06/2020 09/06/2020 12:34 AM LASER BEAM TRIM OPERATOR COVID-19 Rule Out 03/22/2021 03/22/2021 03/22/2021 11:36 AM CDT COVID-19 Rule Out 08/28/2021 08/28/2021 08/29/2021 7:37 PM CDT documented as of this encounter Care Teams Service Superintendent Relationship Specialty Start Date End Date Alana Renee NP PCP - General NURSE PRACTITIONER 09/22/18 08/14/21 Julisa Pierre [facility] PCP - General Nurse Practitioner Family 08/15/2106/03 Christiana Woodward [facility] PCP - General Nurse Practitioner Family 06/04/23 documented as of this encounter
--- OUTSIDE RECORDS SUMMARY | 2025-07-14 07:48 | XMS_ITS | Encounter Summary ---
Author Organization [facility] Address [address] [place] [address] Care Team Providers Care Administrative Resident Name Role Phone Alana Renee NP Primary Care Provider Unav ailable Julisa Pierre [facility] Primary Care Provider + Christiana Woodward [facility] Primary Care Provider + Encounter Details Date Type Department Care Team (Late st Contact Info) Description 06/11/2020 [employer] Message Enc [facility] Medical Group Family & Internal Medicine [address] [phone] Alana Renee, SERVICE CONTROL OPERATOR RE: Question Social History Tobacco Use Types [...] Sex Assigned at Female 10/21/2018 10:54 PM TOOL SUPERVISOR Legal Sex Female 6:02 PM CDT Gender Identity Female 10/21/2018 10:54 PM TOOL SUPERVISOR Sexual Orientation Straight 10/21/2018 1: 52 PM TOOL SUPERVISOR Occupation Industry Job Start Date Job [...] Rule Out 09/06/2020 09/06/2020 09/09/2020 3:01 PM TOOL SUPERVISOR COVID-19 Confirmed 09/06/2020 09/06/2020 12:34 AM TOOL SUPERVISOR COVID-19 Rule Out 03/22/2021 03/22/2021 03/22/2021 11:36 AM CDT COVID-19 Rule Out 08/28/2021 08/28/2021 08/29/2021 7:37 PM CDT documented as of this encounter Care Teams Administrative Resident Relationship Specialty Start Date End Date Alana Renee NP PCP - General NURSE PRACTITIONER 09/22/18 08/14/21 Julisa Pierre [facility] PCP - General Nurse Practitioner Family 08/15/2106/03 Christiana Woodward [facility] PCP - General Nurse Practitioner Family 06/04/23 documented as of this encounter
--- OUTSIDE RECORDS SUMMARY | 2025-07-14 07:48 | XMS_ITS | Encounter Summary ---
Author Organization [facility] Address [address] [place] [address] Care Team Providers Care Tattooer Name Role Phone Julisa Pierre [facility] Primary Care Provider + Christiana Woodward [facility] Primary Care Provider + Encounter Details Date Type Department Care Team (Late st Contact Info) Description 01/30/2023 ShoutOut Message Enc [facility] Medical Group Family & Internal Medicine [address] [phone] Julisa Pierre [address] [phone] Medication Questions Social History Tobacco Use Types [...] Sex Assigned at Female 10/21/2018 10:54 PM RASPBERRY CHECKER Legal Sex Female 6:02 PM CDT Gender Identity Female 10/21/2018 10:54 PM RASPBERRY CHECKER Sexual Orientation Straight 10/21/2018 1: 52 PM RASPBERRY CHECKER Occupation Industry Job Start Date Job End [...] neck patches for motion sickness in case. [facility] please. Thanks! documented in this encounter Plan of Treatment Not on file documented as of this encounter Visit Diagnoses Diagnosis Motion sickness- Primary documented in this encounter Care Teams Tattooer Relationship Specialty Start Date End Date Julisa Pierre [facility] PCP - General Nurse Practitioner Family 08/15/2106/03 Christiana Woodward [facility] PCP - General Nurse Practitioner Family 06/04/23 documented as of this encounter
--- OUTSIDE RECORDS SUMMARY | 2025-07-14 07:48 | XMS_ITS | Clinical Summary ---
Author Organization [facility] Address [address] [facility] [place] [address] Phone Care Team Providers Care Engine Service Repairer Name Role Phone [facility], External Provider Primary Care Provider U navailable [...] INFLUENZA VACCINE (#1) 2025 Insurance Care Teams Engine Service Repairer Relationship Specialty Start Date End Date [facility], External Provider [address] [place] [address] PCP - General 04/02/17
--- OUTSIDE RECORDS SUMMARY | 2025-07-14 07:48 | XMS_ITS | Encounter Summary ---
Author Organization [facility] Address [address] [place] [address] Care Team Providers Care Railroad Car Letterer Name Role Phone [place], Alana Mcdonald VISUAL BASIC DEVELOPER Primary Care Provider Unav ailable Julisa Pierre [facility] Primary Care Provider + Christiana Woodward [facility] Primary Care Provider + Encounter Details Date Type Department Care Team (Late st Contact Info) Description 11/18/2016 Abstract [facility] CONVERSION [id number] [place] [id number] , Generic Conversion, Social History Tobacco Use Types Packs/Day Years Used Date Smoking Tobacco: Never Assessed Comments Unknown Sex and Gender Information Value Date Recorded Sex Assigned at Female 10/21/2018 10:54 PM MANAGER QUALITY COMPLIANCE Legal Sex Female 6:02 PM CDT Gender Identity Female 10/21/2018 10:54 PM MANAGER QUALITY COMPLIANCE Sexual Orientation Straight 10/21/2018 1: 52 PM MANAGER QUALITY COMPLIANCE documented as of this encounter Plan of Treatment Not on file documented as of this encounter Visit Diagnoses Not on filedocumented in this encounter Additional Health Concerns Infection Onset Date Last Indicated Resolved Time COVID-19 Rule Out 09/06/2020 09/06/2020 09/09/2020 3:01 PM MANAGER QUALITY COMPLIANCE COVID-19 Confirmed 09/06/2020 09/06/2020 12:34 AM MANAGER QUALITY COMPLIANCE COVID-19 Rule Out 03/22/2021 03/22/2021 03/22/2021 11:36 AM CDT COVID-19 Rule Out 08/28/2021 08/28/2021 08/29/2021 7:37 PM CDT documented as of this encounter Care Teams Railroad Car Letterer Relationship Specialty Start Date End Date Alana Renee NP PCP - General NURSE PRACTITIONER 09/22/18 08/14/21 Julisa Pierre [facility] PCP - General Nurse Practitioner Family 08/15/2106/03 Christiana Woodward, [facility] PCP - General Nurse Practitioner Family 06/04/23 documented as of this encounter
--- OUTSIDE RECORDS SUMMARY | 2025-07-14 07:49 | XMS_ITS | Encounter Summary ---
Author Organization [facility] Address [address] [place] [address] Care Team Providers Care Credit Interviewer Name Role Phone Julisa Pierre [facility] Primary Care Provider + Christiana Woodward [facility] Primary Care Provider + Encounter Details Date Type Department Care Team (Late st Contact Info) Description 08/22/2022 StartMe Message Enc [facility] Medical Group Family & Internal Medicine [address] [address] Julisa Pierre [address] [phone] Medication Questions Social History Tobacco Use Types [...] Sex Assigned at Female 10/21/2018 10:54 PM LEAD RIDER Legal Sex Female 6:02 PM CDT Gender Identity Female 10/21/2018 10:54 PM LEAD RIDER Sexual Orientation Straight 10/21/2018 1: 52 PM LEAD RIDER Occupation Industry Job Start Date Job End [...] on filedocumented in this encounter Care Teams Credit Interviewer Relationship Specialty Start Date End Date Julisa Pierre FNP-BC PCP - General Nurse Practitioner Family 08/15/2106/03 Christiana Woodward FNP-BC PCP - General Nurse Practitioner Family 06/04/23 documented as of this encounter
--- OUTSIDE RECORDS SUMMARY | 2025-07-14 07:49 | XMS_ITS | Encounter Summary ---
Author Organization [facility] Address [address] [place] [address] Care Team Providers Care Supervisor Hot Dip Tinning Name Role Phone Alana Renee NP Primary Care Provider Unav ailable Julisa Pierre [facility] Primary Care Provider + Christiana Woodward [facility] Primary Care Provider + Encounter Details Date Type Department Care Team (Late st Contact Info) Description 04/15/2021 Vidcastert Message Enc [facility] Medical Group Family & Internal Medicine [address] [phone] Alana Renee PRESSURE TEST OPERATOR RE: Question Social History Tobacco Use [...] Sex Assigned at Female 10/21/2018 10:54 PM EELER Legal Sex Female 6:02 PM CDT Gender Identity Female 10/21/2018 10:54 PM EELER Sexual Orientation Straight 10/21/2018 1: 52 PM EELER Occupation Industry Job Start Date Job End [...] documented as of this encounter Care Teams Supervisor Hot Dip Tinning Relationship Specialty Start Date End Date Alana Renee NP PCP - General NURSE PRACTITIONER 09/22/18 08/14/21 Julisa Pierre [facility] PCP - General Nurse Practitioner Family 08/15/2106/03 Christiana Woodward, [facility] PCP - General Nurse Practitioner Family 06/04/23 documented as of this encounter
--- OUTSIDE RECORDS SUMMARY | 2025-07-14 07:49 | XMS_ITS | Encounter Summary ---
Author Organization [facility] Address [address] [place] [address] Care Team Providers Care Material Preparation Worker Name Role Phone Christiana Woodward [facility] Primary Care Provider + Encounter Details Date Type Department Care Team (Late st Contact Info) Description 07/27/2024 [employer] Message [employer] [facility] Medical Group Family & Internal Medicine [address] [phone] [employer] Provider Need to reset appt Social History [...] Sex Assigned at Female 10/21/2018 10:54 PM PROMOTION OFFICER Legal Sex Female 6:02 PM CDT Gender Identity Female 10/21/2018 10:54 PM PROMOTION OFFICER Sexual Orientation Straight 10/21/2018 1: 52 PM PROMOTION OFFICER Occupation Industry Job Start Date Job [...] documented as of this encounter Care Teams Material Preparation Worker Relationship Specialty Start Date End Date Christiana Woodward, MACHINE BILLER- PCP - General Nurse Practitioner Family 06/04/23 documented as of this encounter
--- OUTSIDE RECORDS SUMMARY | 2025-07-14 07:49 | XMS_ITS | Encounter Summary ---
Author Organization [facility] Address [address] [place] [address] Care Team Providers Care Analytics Manager Name Role Phone Alana Renee NP Primary Care Provider Unav ailable Julisa Pierre [facility] Primary Care Provider + Christiana Woodward [facility] Primary Care Provider + Encounter Details Date Type Department Care Team (Late st Contact Info) Description 03/25/2021 Social Touch Message Enc [facility] Medical Group Family & Internal Medicine [address] [phone] Alana Renee NP RE: Follow [...] Sex Assigned at Female 10/21/2018 10:54 PM MACHINE PACK ASSEMBLER Legal Sex Female 6:02 PM CDT Gender Identity Female 10/21/2018 10:54 PM MACHINE PACK ASSEMBLER Sexual Orientation Straight 10/21/2018 1: 52 PM MACHINE PACK ASSEMBLER Occupation Industry Job Start Date Job End [...] documented as of this encounter Care Teams Analytics Manager Relationship Specialty Start Date End Date Alana Renee NP PCP - General NURSE PRACTITIONER 09/22/18 08/14/21 Julisa Pierre [facility] PCP - General Nurse Practitioner Family 08/15/2106/03 Christiana Woodward, [facility] PCP - General Nurse Practitioner Family 06/04/23 documented as of this encounter
--- OUTSIDE RECORDS SUMMARY | 2025-07-14 07:49 | XMS_ITS | Clinical Summary ---
Author Organization [facility] Address [address] [place] [address] Care Team Providers Care Machine Molder Name Role Phone Christiana Woodward [facility] Primary Care Provider + Allergies No [...] Encounter for preventive health examination 06/21/2012 09/24/2018 Immunizations Immunization Administration Dates Next Due Dtap [...] Sex Assigned at Female 10/21/2018 10:54 PM FINGERNAIL SCULPTURER Legal Sex Female 6:02 PM CDT Gender Identity Female 10/21/2018 10:54 PM FINGERNAIL SCULPTURER Sexual Orientation Straight 10/21/2018 1: 52 PM FINGERNAIL SCULPTURER Occupation Industry Job Start Date Job End [...] 06/17/2022 COVID-19 Vaccine ( season) 2025 10/17/2021 Cervical Cancer Screening 10/14/2027 Po stponed from [...] age to complete this topic PHQ-2 (Physician Melvin) Completed 01/30/2025 Meningococcal B Vaccine Aged Out [...] patient's age to complete this topic Insurance [facility] Care Teams Machine Molder Relationship Specialty Start Date End Date Christiana Woodward, [facility]- PCP - General Nurse Practitioner Family 06/04/23
--- OUTSIDE RECORDS SUMMARY | 2025-07-14 07:49 | XMS_ITS | Encounter Summary ---
Author Organization [facility] Address [address] [place] [id number] Care Team Providers Care Observation Nurse Name Role Phone Julisa Pierre [facility] Primary Care Provider + Christiana Woodward [facility] Primary Care Provider + Encounter Details Date Type Department Care Team (Late st Contact Info) Description 12/26/2021 [employer] Message Enc [facility] Family & Internal Medicine [address] [phone] Julisa Pierre [address] [id number] Medication Questions Social History Tobacco Use Types [...] Sex Assigned at Female 10/21/2018 10:54 PM ELECTION WATCHER Legal Sex Female 6:02 PM CDT Gender Identity Female 10/21/2018 10:54 PM ELECTION WATCHER Sexual Orientation Straight 10/21/2018 1: 52 PM ELECTION WATCHER Occupation Industry Job Start Date Job End Date Not on file Not on file Not on file Not on file documented as of this encounter Progress Notes * AYLEEN Ferris - 12/26/2021 3:26 PM CST Follow up for annual physical 08/2022. Thank you for sending in the medication! TION WATCHER * Mary Esparza RN - 12/26/2021 11:39 AM CST Julisa, When would you like Dorina back for follow-up? TION WATCHER documented in this encounter Plan of Treatment Not on file documented as of this encounter Visit Diagnoses Diagnosis Gastroesophageal reflux disease with esophagitis without hemorrhage documented in this encounter Care Teams Observation Nurse Relationship Specialty Start Date End Date Julisa Pierre FNP-BC PCP - General Nurse Practitioner Family 08/15/2106/03 Christiana Woodward FNP-BC PCP - General Nurse Practitioner Family 06/04/23 documented as of this encounter
[2025-07-14 08:23] LABS: Glucose Fasting Gestational 100 mg/dL (>/=95)
[2025-07-14 10:53] LABS: Glucose 1 Hour Gest 166 mg/dL (>/=180)
[2025-07-14 11:12] LABS: Glucose 2 Hour Gest 107 mg/dL (>/= 155)
[2025-07-14 12:45] LABS: Glucose 3 Hour Gest 107 mg/dL (>/=140)
== END 2025-07-14 07:46 | disposition home or self-care (01) ==
LOC: ANHLAB 07:45
PROVIDERS: Visit Provider Nurse Practitioner Family
DX: R73.09 Other abnormal glucose (principal)
CPT/HCPCS: 36415; 82951; 82952

== ENCOUNTER 2025-09-14 04:57 | Inpatient (IN) | payer OTHER, SELFPAY ==
[2025-09-14] VITALS (243 sets, daily range): BP systolic 92–157; BP diastolic 57–101; PULSE 47–230; RESP 18; TEMP 36.6–37.5; O2SAT 72–100; BMI 33.2
[2025-09-14 05:28] LABS: Hematocrit 38.8 % (37.0-47.0); Hemoglobin 11.6 g/dL (12.0-15.0); Immature Granulocyte Percent A 0.6 % (0-0.5); Immature Platelet Fraction Pct 11.5 % (0.9-11.2); Lymphocytes Absolute Auto 1.44 K/mm3 (0.9-3.2); Mean Corpuscular HGB Conc 29.9 g/dl (32-36); Mean Corpuscular Hemoglobin 22.3 pg (26-34); Mean Corpuscular Volume 74.6 fl (80-100); Nucleated Red Blood Cells Absolute Auto 0.000 K/mm3 (0.0-0.012); Nucleated Red Blood Cells Perc 0.0 % (0.0-0.2); Platelet Count Result 244 k/mm3 (150-375); Red Blood Count 5.20 M/mm3 (4.2-5.4); White Blood Count 11.7 K/mm3 (4.5-10.0)
[2025-09-14] MEDS: OXYTOCIN 30 UNITS/NS 500 ML 30 UNITS/500 ML BAG 6 UNITS IV CONT (05:36)
[2025-09-14] MEDS: LACTATED RINGERS 1,000 ML 125 ML IV CONT ×3 (05:36→16:27)
--- NOTE | 2025-09-14 05:39 | LDADM ---
This patient, Kiera Bhatia, was admitted to Labor/Delivery/Recovery 108 on 09/14/25 at 04:57. Plans for labor, pain management and were discussed with patient. Patient/family oriented to hospital policies and general routines including ID bracelet, bed and alarms, visiting hours, pain management, procedures, bathroom and other care routines, personal items, smoking policy, room service/diet and guest tray routines, security routines, and visiting hours. Patient/Family are encouraged to report perceived risks to care and to ask questions if they do not understand what they are told or what they should do. See OBIX for further documentation.
[2025-09-14 05:48] LABS: Ovalocytes Occasional; Schistocytes None Seen
[2025-09-14 06:15] LABS: Syphilis IgG/IgM Antibody Non-Reactive (Nonreactive)
--- NOTE | 2025-09-14 08:41 | PM.IMHP ---
H&P: HPI History of Present Illness Date/Time: 09/14/25 08:41 Chief Complaint: Here for induction of labor. Narrative: 29 y/o G1 at 39 5/7 weeks here for an induction of labor. GBS neg. EFW two weeks ago showed EFW 4027 g (8#14oz). Review of Systems Review of Systems: All systems reviewed & are unremarkable except as noted in HPI and below PMFSH Past Medical History Medical History Seasonal allergies Surgical History Surgical History History of tonsillectomy Family History Family History Mother Depression Heart disease Cancer Cerebrovascular accident Asthma Fibromyalgia Father Melanoma Sibling Anxiety Depression Grandparent Heart disease Thyroid disorder Grandparent Rheumatoid arthritis Social History Social History Smoking status: Never smoker Alcohol intake: never Substance use: never Substance use type: does not use Do You Feel Safe in your Home?: Yes Lack of Transportation: No Lack of Food: Never True Current Housing: I Have Housing Concerned About Future Housing: No Difficulty Paying Gas/Electric Bills: No Difficulty Paying for Meds: No Currently Unemployed: No Education: Bachelor's Degree Difficulty w/ Childcare or Family Care: No Spiritual care concerns: No Meds Home Medications and Allergies Home Medications ?Medication ?Instructions ?Recorded ?Confirmed ?Type docosahexaenoic acid 200 mg 200 mg PO DAILY 05/18/25 09/14/25 History capsule ( DHA) omeprazole 40 mg capsule,delayed 40 mg PO DAILY 05/18/25 09/14/25 History release fluoxetine 20 mg capsule 20 mg PO DAILY #30 caps 07/21/25 09/14/25 Rx Allergies Allergy/AdvReac Type Severity Reaction Status Date / Time No Known Allergies Allergy Verified 09/14/25 06:22 Vital Signs Vital Signs - 24 hr 09/14/25 05:34 09/14/25 05:39 09/14/25 05:39 Temperature Pulse Rate Blood Pressure Pulse Oximetry 99 100 Oxygen Delivery Room Air 09/14/25 05:44 09/14/25 05:46 09/14/25 05:49 Temperature 98 F Pulse Rate 92 Blood Pressure 131/83 Pulse Oximetry 99 100 Oxygen Delivery 09/14/25 05:54 09/14/25 06:03 09/14/25 06:08 Temperature Pulse Rate Blood Pressure Pulse Oximetry 100 100 100 Oxygen Delivery 09/14/25 06:13 09/14/25 06:16 09/14/25 06:18 Temperature Pulse Rate 78 Blood Pressure 129/79 Pulse Oximetry 100 100 Oxygen Delivery 09/14/25 06:23 09/14/25 06:28 09/14/25 06:30 Temperature Pulse Rate 86 Blood Pressure 134/88 Pulse Oximetry 100 98 Oxygen Delivery 09/14/25 06:33 09/14/25 06:35 09/14/25 06:40 Temperature Pulse Rate Blood Pressure Pulse Oximetry 100 100 100 Oxygen Delivery 09/14/25 06:45 09/14/25 06:50 09/14/25 06:51 Temperature Pulse Rate 81 Blood Pressure 130/74 Pulse Oximetry 100 100 100 Oxygen Delivery 09/14/25 06:56 09/14/25 07:00 09/14/25 07:01 Temperature Pulse Rate 84 Blood Pressure 123/73 Pulse Oximetry 100 100 Oxygen Delivery 09/14/25 07:06 09/14/25 07:11 09/14/25 07:15 Temperature Pulse Rate 79 Blood Pressure 126/82 Pulse Oximetry 100 100 Oxygen Delivery 09/14/25 07:16 09/14/25 07:21 09/14/25 07:26 Temperature Pulse Rate Blood Pressure Pulse Oximetry 99 99 100 Oxygen Delivery 09/14/25 07:27 09/14/25 07:30 09/14/25 07:37 Temperature Pulse Rate 77 Blood Pressure 132/76 Pulse Oximetry 99 100 Oxygen Delivery 09/14/25 07:42 09/14/25 07:47 09/14/25 07:52 Temperature Pulse Rate Blood Pressure Pulse Oximetry 100 100 99 Oxygen Delivery 09/14/25 07:57 09/14/25 08:01 09/14/25 08:02 Temperature Pulse Rate 79 Blood Pressure 157/101 H Pulse Oximetry 100 98 Oxygen Delivery 09/14/25 08:03 09/14/25 08:03 09/14/25 08:08 Temperature Pulse Rate Blood Pressure Pulse Oximetry 100 100 100 Oxygen Delivery 09/14/25 08:18 09/14/25 08:23 09/14/25 08:28 Temperature Pulse Rate Blood Pressure Pulse Oximetry 100 100 98 Oxygen Delivery 09/14/25 08:30 09/14/25 08:33 09/14/25 08:38 Temperature Pulse Rate 79 Blood Pressure 119/74 Pulse Oximetry 100 100 Oxygen Delivery Exam Const: Other: Well-developed, well-nourished female in no acute distress. Neck: Other: Neck: Trachea midline, no thyromegaly or masses. Resp: Other: Lungs: Normal respiratory effort. Clear to auscultation bilaterally. Cardio: Other: Heart: Regular rate and rhythm with normal S1-S2. GI: Other: ABD: Soft, nontender, nondistended, gravid. NST reactive. TOCO: contractions every 2-3 min. : Other: Cervix: 3/80/-2. AROM with clear fluid. Vertex. IUPC placed. Back/Spine/Pelvis: Other: Back: No CVA tenderness. Skin: Other: Skin: No lesions, rashes or ulcers noted. Extrem: Other: Extremities: nontender with no edema Psych: Other: Mental status grossly normal, with normal mood and affect. H&P: Results Labs Labs: Short CBC 09/14/25 Range/Units 05:20 WBC 11.7 H (4.5-10.0) K/mm3 Hgb 11.6 L (12.0-15.0) g/dL Hct 38.8 (37.0-47.0) % Plt Count 244 (150-375) k/mm3 Assessment and Plan Assessment and plan (1) Term : Code(s): Z34.90 - Encounter for supervision of normal , unspecified, unspecified trimester Status: Acute Assessment and Plan: A: IUP at 39 5/7 weeks with favorable cervix, suspected macrosomia. P: She desires induction of labor. We reviewed risks, benefits, alternatives in detail, and she would like to proceed with induction. Oxytocin. (2) Suspected macroscopic fetus: Status: Acute
--- NOTE | 2025-09-14 11:16 | WPDANESEPPF ---
Anes - Initial Pre Proc Eval Procedure: labor epidural Date/Time: 09/14/25 11:16 Surgeon: Kasi Baron MD Pre Op Diagnosis: labor pain Pre Op Diagnosis: IOL Patient Data Age: 29 Gender: F Height: 1.78 m Weight: 105 kg Last Vital Signs Temp 36.8 C 09/14/25 09:30 Pulse 90 09/14/25 11:15 BP 116/64 09/14/25 11:15 Pulse Ox 100 09/14/25 11:11 O2 Del Method Room Air 09/14/25 05:39 Allergies Allergy/AdvReac Type Severity Reaction Status Date / Time No Known Allergies Allergy Verified 09/14/25 06:22 Home Medications ?Medication ?Instructions ?Recorded ?Confirmed ?Type docosahexaenoic acid 200 mg 200 mg PO DAILY 05/18/25 09/14/25 History capsule ( DHA) omeprazole 40 mg capsule,delayed 40 mg PO DAILY 05/18/25 09/14/25 History release fluoxetine 20 mg capsule 20 mg PO DAILY #30 caps 07/21/25 09/14/25 Rx Laboratory Tests 09/14/25 05:20 WBC 11.7 H K/mm3 (4.5-10.0) RBC 5.20 M/mm3 (4.2-5.4) Hgb 11.6 L g/dL (12.0-15.0) Hct 38.8 % (37.0-47.0) MCV 74.6 L fl (80-100) MCH 22.3 L pg (26-34) MCHC 29.9 L g/dl (32-36) RDW 17.2 H % (11.5-14.5) Plt Count 244 k/mm3 (150-375) MPV 12.1 H fl (7.4-10.4) Immature Gran % (Auto) 0.6 H % (0-0.5) Neut % (Auto) 82.1 H % (45.5-73.1) Lymph % (Auto) 12.3 L % (18.3-44.2) [place] % (Auto) 3.8 % (2.6-8.5) Eos % (Auto) 0.8 % (0-4.4) Baso % (Auto) 0.4 % (0.2-1.2) Lymph # (Auto) 1.44 K/mm3 (0.9-3.2) [place] # (Auto) 0.4 K/mm3 (0.1-0.6) Eos # (Auto) 0.1 K/mm3 (0-0.3) Baso # (Auto) 0.1 K/mm3 (0.0-0.1) Abs Immat Gran (auto) 0.07 H K/mm3 (0.00-0.031) Absolute Neuts (auto) 9.6 H K/mm3 (1.3-6.7) Absolute Nucleated RBC 0.000 K/mm3 (0.0-0.012) Band Neutrophils % Not Reportable Nucleated RBC % 0.0 % (0.0-0.2) Platelet Estimate Adequate (Adequate) % Immature Plt Fraction 11.5 H % (0.9-11.2) Ovalocytes Occasional Schistocytes None seen Syphilis IgG/IgM Ab Non-reactive (Nonreactive) Blood Type A Negative Antibody Screen Negative Patient hx anesthesia problems: none Family hx anesthesia problems: none Results Review: All pre-operative results and documents have been reviewed as part of the pre-operative evaluation. [facility] Past Medical History Medical History Seasonal allergies Surgical History Surgical History History of tonsillectomy Family History Family History Mother Depression Heart disease Cancer Cerebrovascular accident Asthma Fibromyalgia Father Melanoma Sibling Anxiety Depression Grandparent Heart disease Thyroid disorder Grandparent Rheumatoid arthritis Social History Social History Smoking status: Never smoker Alcohol intake: never Substance use: never Substance use type: does not use Do You Feel Safe in your Home?: Yes Lack of Transportation: No Lack of Food: Never True Current Housing: I Have Housing Concerned About Future Housing: No Difficulty Paying Gas/Electric Bills: No Difficulty Paying for Meds: No Currently Unemployed: No Education: Bachelor's Degree Difficulty w/ Childcare or Family Care: No Spiritual care concerns: No Anes - Eval Final PreProcedure Day of Procedure 09/14/25 11:16 Patient weight: obese ASA classification: II Anesthetic plan: proceed Anesthesia type and monitoring: regional epidural and standard monitoring Results Review: All pre-operative results and documents have been reviewed as part of the pre-operative evaluation. Informed Consent: The patient's anesthetic plan and its attendant risks and benefits were discussed with the patient/family/POA. Questions were solicited and answers provided to the satisfaction of the patient/family/POA.
--- NOTE | 2025-09-14 12:49 | PM.OBPNLAB ---
Pain Control Date/time seen: 09/14/25 12:15 Comments: Comfortable with epidural. Pelvic Exam Dilation (cm): 6 Effacement (%): 80 station: -1 Contractions Contraction frequency: 3 Contraction pattern: Regular Status status: Category l Assessment and Plan Comments: Continue labor.
[2025-09-14] MEDS: ONDANSETRON INJ 4 MG/2 ML VIAL IV PUSH (15:33)
--- NOTE | 2025-09-14 16:43 | PM.OBPNLAB ---
Pain Control Date/time seen: 09/14/25 16:10 Pelvic Exam Dilation (cm): 9 Effacement (%): 80 station: 0 Contractions Contraction frequency: 3 Contraction pattern: Regular Status status: Category l Assessment and Plan Comments: Continue labor.
--- NOTE | 2025-09-14 18:39 | P.PCNOB_ITS ---
OB - Vaginal Delivery Note Procedure Delivery date: 09/14/25 Induction method: Per Pitocin Protocol Delivery augmentation: Rupture of Membranes Delivery monitor: External FHT, External Uterine and Internal Uterine Route of delivery: Episiotomy description: None Laceration Description: Vaginal Delivery repair: vicryl (3-0) Specimen: Yes (cord blood) Quantitative Blood Loss (ml): 400 Anesthesia type: Epidural Disposition: PACU Complications: None Narrative: 29 y/o G1 at 39 5/7 weeks gestation who presented to the hospital for induction of labor. Oxytocin was administered intravenously. Amniotomy was performed with return of clear fluid. She received an epidural for pain control. Her labor progressed and her cervix dilated completely. She pushed with good effort and delivered the infant's head to the perineum, followed by the body. The nose and mouth were bulb suctioned. After a delay, the cord was clamped and cut. The infant was handed off the field. Cord blood was collected. The placenta delivered spontaneously and was grossly normal in appearance. The usual 3 vessel cord was noted. Vaginal lacerations were reapproximated using 3-0 vicryl in interrupted figure of eight fashion. Excellent hemostasis resulted as did excellent reapproximation of the normal anatomy. Needle and instrument counts were correct. The patient was taken to recovery room in stable condition. The went to the nursery in stable condition. I was present and scrubbed for the entire delivery. [place] Baby Date of : 09/14/25 Time of : 18:20 Gestational Age by Date: 39 Infant gender: Female Weight (pounds): 7 Weight (ounces): 15 presentation: vertex position: Right Occiput Anterior Placenta delivery description: Spontaneous and Normal Configuration Cord Vessel Description: 3 Vessels and Delayed Cord Clamping score one minute: 8 score five minutes: 9
[2025-09-14] MEDS: OXYTOCIN 30 UNITS/NS 500 ML 30 UNITS/500 ML BAG 125 UNITS IV CONT (18:45)
[2025-09-14] MEDS: IBUPROFEN 600 MG TABLET PO (19:25)
--- NOTE | 2025-09-14 21:16 | OBPPTRN ---
Patient transferred to post room #285 via wheelchair at 2116 Support person present. Oriented to unit, room, information board, rooming in, admission packet and security measures. Patient verbalizes understanding.
[2025-09-14] MEDS: ACETAMINOPHEN 325 MG TABLET 650 MG PO (23:59)
[2025-09-15 00:30] VITALS: BP 126/85; PULSE 95; RESP 16; TEMP 37.1; O2SAT 100
[2025-09-15] MEDS: IBUPROFEN 600 MG TABLET PO ×3 (03:56→22:45)
[2025-09-15 04:30] VITALS: BP 128/79; PULSE 108; RESP 20; TEMP 36.6; O2SAT 99
[2025-09-15 05:00] LABS: Hematocrit 25.8 % (37.0-47.0); Hemoglobin 7.7 g/dL (12.0-15.0)
[2025-09-15 05:22] VITALS: BP 128/79; PULSE 108; RESP 20; TEMP 36.7; O2SAT 99
[2025-09-15 07:45] VITALS: BP 115/74; PULSE 112; RESP 16; TEMP 37.3; O2SAT 99
[2025-09-15] MEDS: DOCUSATE SODIUM 100 MG CAPSULE PO ×2 (09:36→17:42)
[2025-09-15] MEDS: MULTIVIT/MIN/PREN/FOL AC/IRON TABLET 1 TAB PO (09:36)
[2025-09-15] MEDS: LORATADINE 10 MG TABLET PO (09:37)
[2025-09-15] MEDS: ACETAMINOPHEN 325 MG TABLET 650 MG PO ×2 (09:38→22:45)
[2025-09-15 12:18] VITALS: BP 111/59; PULSE 94; RESP 16; TEMP 37.7; O2SAT 99
[2025-09-15 12:39] VITALS: TEMP 36.8
--- NOTE | 2025-09-15 16:42 | P.PNOB_ITS ---
OB - PN: Subj Subjective Date/time seen: 09/15/25 16:42 Patient comments: pain well controlled, tolerating diet, flatus present and other (Decreasing lochia.) [place] baby status: doing well and bottle feeding well [place] feeding status: exclusively bottle feeding OB - PN: Obj Data Labs 09/15/25 04:26 Labs: Laboratory Results - last 24 hr 09/15/25 09/15/25 04:26 08:39 Hgb 7.7 L D Hct 25.8 L Blood Type A Negative Antibody Screen TNP Screen Negative Baby's Blood Type A pos Baby's JT Negative Doses of RhIg Required 1 OB - PN A/P Plan day: 1 Plan: routine care Comments: reviewed hgb with collin. RN informed to repeat vitals and call with change in status. iron with prenatals today and recheck hgb tomorrow. Time Spent With Patient Time: Total time spent is greater than 50% in coordination of care (as documented) at patient's floor/unit and/or counseling patient: Time with patient: less than 15 minutes Review of Systems 2 Constitutional: Constitutional: Denies chills, Denies fatigue, Denies headache(s) and Denies weakness Cardiovascular: Cardiovascular: Denies chest pain, Denies leg edema and Denies lightheadedness Respiratory: Respiratory: Reports no additional respiratory complaints Neurologic: Reports system reviewed and no additional complaints, except as documented Psychiatric: Psychiatric: Denies homicidal ideation and Denies suicidal ideation Exam 2 Const: General: cooperative and healthy appearing O rientation/consciousness: oriented to person, oriented to place and oriented to time Eyes: General: appearance normal, both eyes and all related structures Resp: Effort & Inspection: normal respiratory effort and able to speak in complete sentences Cardio: Rate: regular rate Rhythm: regular rhythm GI: Inspection: normal to inspection GI Palp: Yes Soft to palpation and No Tenderness to palpation present (GI) Auscultation: normal bowel sounds : Other: fundus 1below umbilicus Skin: General skin exam: normal color Neuro: General: oriented to person, oriented to place and oriented to time Extrem: General: no calf tenderness Psych: Affect: normal affect
[2025-09-15] MEDS: RHO(D) IMMUNE GLOBULIN 300 MCG/2 ML SYRINGE IM (17:45)
[2025-09-15] MEDS: CALCIUM CARBONATE (TUMS) 500 MG (200 MG ELEMENTAL) PO (20:46)
[2025-09-15] MEDS: PANTOPRAZOLE 40 MG TABLET PO (20:46)
[2025-09-16 01:27] VITALS: BP 117/71; PULSE 109; RESP 14; TEMP 36.9; O2SAT 97
[2025-09-16 07:15] VITALS: BP 129/78; PULSE 110; RESP 16; TEMP 37.4; O2SAT 100
[2025-09-16] MEDS: LORATADINE 10 MG TABLET PO (07:43)
[2025-09-16] MEDS: ACETAMINOPHEN 325 MG TABLET 650 MG PO ×2 (07:43→13:34)
[2025-09-16] MEDS: IBUPROFEN 600 MG TABLET PO ×2 (07:43→13:34)
[2025-09-16] MEDS: DOCUSATE SODIUM 100 MG CAPSULE PO (07:44)
[2025-09-16] MEDS: MULTIVIT/MIN/PREN/FOL AC/IRON TABLET 1 TAB PO (07:44)
--- NOTE | 2025-09-16 08:00 | PC.NURSE ---
Patient chooses to exclusively bottle feed with formula per primary RN. No further needs.
--- NOTE | 2025-09-16 11:30 | PM.OBDSVD ---
DS: Admitting Diagnosis Discharge Date 09/16/25 <Heike Alcala MD - Last Filed: 09/16/25 11:31> Admitting Diagnosis IUP at 39 5/7 weeks <Kasi Baron MD - Last Filed: 09/14/25 18:45> DS: Discharge Diagnosis Discharge Diagnosis (1) (normal spontaneous vaginal delivery): Code(s): O80 - Encounter for full-term uncomplicated delivery <Kasi Baron MD - Last Filed: 09/14/25 18:45> Status: Acute <Kasi Baron MD - Last Filed: 09/14/25 18:45> OB - DS: Summary OB Procedures : NST <Kasi Baron MD - Last Filed: 09/14/25 18:45> Ultrasound <Heike Alcala MD - Last Filed: 09/16/25 11:31> OB Procedures Intrapartum: Spontaneous Vag Delivery <Kasi Baron MD - Last Filed: 09/14/25 18:45> OB Procedures: : None <Kasi Baron MD - Last Filed: 09/14/25 18:45> Peripartum Data Infant Delivery Method: Natural Vaginal <Heike Alcala MD - Last Filed: 09/16/25 11:31> Laceration Description: Vaginal <Kasi Baron MD - Last Filed: 09/14/25 18:45> Episiotomy description: None <Kasi Baron MD - Last Filed: 09/14/25 18:45> [place] 1: Gender: Female <Heike Alcala MD - Last Filed: 09/16/25 11:31> Disposition of : home <Heike Alcala MD - Last Filed: 09/16/25 11:31> Status at Discharge Functional status at discharge: independent ambulation <Heike Alcala MD - Last Filed: 09/16/25 11:31> Overall status at discharge: patient is back to baseline <Heike Alcala MD - Last Filed: 09/16/25 11:31> Time Spent with Patient Time attestation: Total time spent providing and/or coordinating discharge services: <Kasi Baorn MD - Last Filed: 09/14/25 18:45> Exam Const: General: cooperative, comfortable, no acute distress and obese <Heike Alcala MD - Last Filed: 09/16/25 11:31> Orientation/consciousness: patient oriented x3 <Heike Alcala MD - Last Filed: 09/16/25 11:31> Resp: Effort & Inspection: normal respiratory effort <Heike Alcala MD - Last Filed: 09/16/25 11:31> Auscultation: clear to auscultation bilaterally <Heike Alcala MD - Last Filed: 09/16/25 11:31> Cardio: Rate: regular rate <Heike Alcala MD - Last Filed: 09/16/25 11:31> GI: Inspection: non-distended <Heike Alcala MD - Last Filed: 09/16/25 11:31> GI Palp: No abdominal tenderness and Yes Soft to palpation <Heike Alcala MD - Last Filed: 09/16/25 11:31> Auscultation: normal bowel sounds <Heike Alcala MD - Last Filed: 09/16/25 11:31> : Other: fundus firm <Heike Alcala MD - Last Filed: 09/16/25 11:31> Skin: General skin exam: normal color <Heike Alcala MD - Last Filed: 09/16/25 11:31> Neuro: General: patient oriented x3 <Heike Alcala MD - Last Filed: 09/16/25 11:31> Extrem: General: normal to inspection <Heike Alcala MD - Last Filed: 09/16/25 11:31> Psych: Appearance: grossly normal <Heike Alcala MD - Last Filed: 09/16/25 11:31> Affect: normal affect <Heike Alcala MD - Last Filed: 09/16/25 11:31> Attitude: cooperative <Heike Alcala MD - Last Filed: 09/16/25 11:31> DS: Data Data Completed and Pending Labs on day of discharge: Labs from last 24 hours 09/14/25 05:20 WBC 11.7 H RBC 5.20 Hgb 11.6 L Hct 38.8 MCV 74.6 L MCH 22.3 L MCHC 29.9 L RDW 17.2 H Plt Count 244 MPV 12.1 H Immature Gran % (Auto) 0.6 H Neut % (Auto) 82.1 H Lymph % (Auto) 12.3 L [place] % (Auto) 3.8 Eos % (Auto) 0.8 Baso % (Auto) 0.4 Lymph # (Auto) 1.44 [place] # (Auto) 0.4 Eos # (Auto) 0.1 Baso # (Auto) 0.1 Abs Immat Gran (auto) 0.07 H Absolute Neuts (auto) 9.6 H Absolute Nucleated RBC 0.000 Band Neutrophils % Not Reportable Nucleated RBC % 0.0 Platelet Estimate Adequate % Immature Plt Fraction 11.5 H Ovalocytes Occasional Schistocytes None seen Syphilis IgG/IgM Ab Non-reactive Blood Type A Negative Antibody Screen Negative <Kasi Baron MD - Last Filed: 09/14/25 18:45> Discharge Plan Discharge Attending physician on discharge: Kasi Baron <Kasi Baron MD - Last Filed: 09/14/25 18:45> Kasi Baron <Heike Alcala MD - Last Filed: 09/16/25 11:31> Discharging Clinician: Kasi Baron <Kasi Baron MD - Last Filed: 09/14/25 18:45> Kasi Baron <Heike Alcala MD - Last Filed: 09/16/25 11:31> Anticipated Discharge Date/Time: 09/16/25 12:30 <Kasi Baron MD - Last Filed: 09/14/25 18:45> Patient Disposition: Home <Kasi Baron MD - Last Filed: 09/14/25 18:45> Activity: pelvic rest <Kasi Baron MD - Last Filed: 09/14/25 18:45> pelvic rest <Heike Alcala MD - Last Filed: 09/16/25 11:31> Diet: regular <Kasi Baron MD - Last Filed: 09/14/25 18:45> regular <Heike Alcala MD - Last Filed: 09/16/25 11:31> Discharge Instructions: Call or return if temperature above 100.4? F, increased abdominal pain, increased vaginal bleeding or any new problems. <Kasi Baron MD - Last Filed: 09/14/25 18:45> Patient Language: [place] <Kasi Baron MD - Last Filed: 09/14/25 18:45> Stand Alone Forms: General Discharge Information <Kasi Baron MD - Last Filed: 09/14/25 18:45> Follow-up/Referrals: Kasi Baron MD [Physician, [employer] SERVICES MANAGER] - 6 Weeks <Kasi Baron MD - Last Filed: 09/14/25 18:45> Discharge Medications: New ibuprofen 600 mg tablet 600 mg PO Q6H PRN (Reason: cramps) Qty: 30 0RF acetaminophen 325 mg Tablet 650 mg PO Q6H PRN (Reason: Mild Pain (1-3) Or Headache) Qty: 60 0RF docusate sodium 100 mg Capsule 100 mg PO BID PRN (Reason: Constipation) Qty: 90 0RF ibuprofen 600 mg Tablet 600 mg PO Q6H PRN (Reason: Cramping) Qty: 40 0RF Continued DHA 200 mg capsule 200 mg PO DAILY omeprazole 40 mg capsule,delayed release(DR/EC) 40 mg PO DAILY Qty: 90 3RF fluoxetine 20 mg capsule 20 mg PO DAILY Qty: 30 1RF <Kasi Baron MD - Last Filed: 09/14/25 18:45> Date of admission: 09/14/25 04:57 <Kasi Baron MD - Last Filed: 09/14/25 18:45> Primary Care Provider: UNKNOWN,DOCTOR <Kasi Baron MD - Last Filed: 09/14/25 18:45> Admitting Provider: Kasi Baron <Kasi Baron MD - Last Filed: 09/14/25 18:45> Attending physician on admission: Kasi Baron <Kasi Baron MD - Last Filed: 09/14/25 18:45> Condition: Stable <Kasi Baron MD - Last Filed: 09/14/25 18:45>
--- NOTE | 2025-09-16 13:15 | PC.NURSE ---
Patient viewed the discharge video Mother & Baby Care, The First Two Weeks. Patient was given the opportunity and encouraged to ask questions. Patient verbalized understanding of information shared and has been given the mother/baby guide for home reference.
[2025-09-18 11:27] VITALS: BP 126/88; PULSE 106; RESP 20; TEMP 36.6; O2SAT 98
== END 2025-09-16 14:37 | disposition home or self-care (01) | DRG 807 ==
LOC: ANHLDR 18:44 → ANHOB2 09-16 11:30 → ANHLDR 09-19 08:20 → ANHOB2 09-19 08:20
PROVIDERS: Admitting Provider Obstetrics & Gynecology; Visit Provider Obstetrics & Gynecology
DX: O71.4 Obstetric high vaginal laceration alone (principal); Z37.0 Single live birth; Z3A.39 39 weeks gestation of pregnancy
CPT/HCPCS: 36415; 85014; 85018; 85025; 85055; 85461; 86593; 86850; 86900; 86901; 90384; A9270; J2405; J2590; J2790; J2795; J7120